=== PATIENT | female | born 1975 | race Caucasian/White ===

== ENCOUNTER 2021-07-24 07:48 | Inpatient (IN) | payer OTHER, SELFPAY ==
[2021-07-24] VITALS (7 sets, daily range): BP systolic 100–148; BP diastolic 57–102; PULSE 54–118; RESP 14–24; TEMP 36.2–38.1; O2SAT 97–99; BMI 22.8
--- NOTE | ~2021-07-24 | MR_ITS ---
EXAMINATION: MR FOREARM WITHOUT AND WITH CONTRAST, LEFT MR HAND WITHOUT AND WITH CONTRAST, LEFT CLINICAL INFORMATION: Evaluate for osteomyelitis, tenosynovitis, septic arthritis. COMPARISON: None TECHNIQUE: MRI of the left forearm to left hand was performed before and after the intravenous administration of 5.5 mL of Gadavist on a high-field scanner. Most of the hand is included up to proximal fingers. FINDINGS: There is diffuse severe subcutaneous edema throughout the left forearm, wrist, and hand. There are no definite localized fluid collections to suggest an abscess. There is streaky enhancement involving the subcutaneous edema. There is no definite evidence of myositis. The tendons are unremarkable. There is no evidence of tenosynovitis. There are no apparent joint effusions. There is no evidence of bone marrow edema or bony destructive changes. MR/MR forearm LT wo/w con IMPRESSION: 1. Diffuse severe subcutaneous edema throughout the left forearm, wrist, and hand, with streaky enhancement, suspicious for cellulitis. No definite abscess. 2. No evidence of myositis, tenosynovitis, septic arthritis, or osteomyelitis.
--- NOTE | ~2021-07-24 | US_ITS ---
EXAMINATION: US VENOUS WITH DOPPLER UPPER EXTREMITY, LEFT CLINICAL INFORMATION: Swelling. Pain. COMPARISON: None TECHNIQUE: Ultrasound of the upper extremity is performed using compression sonography and color and pulse Doppler flow with assessment of augmentation of flow. There is also imaging and Doppler assessment of the jugular and subclavian veins. Spectral analysis with color-flow imaging is performed. FINDINGS: Respiratory variation, normal compression, and augmented flow are noted throughout the upper extremity including the axillary, brachial, cubital, and radial and ulnar veins. There is normal flow in the internal jugular and subclavian veins. There is no visible deep or superficial thrombophlebitis. If the patient's symptoms progress, a followup ultrasound in 5 -7 days might be of value to exclude proximal propagation from a nonvisualized distal arm vein. Prominent left axillary lymph node measures 1.9 x 0.8 x 1.5 cm with an echogenic central fatty hilum and normal internal vascularity, benign morphologic features. US/US venous duplex UE LT IMPRESSION: No DVT demonstrated in the left upper extremity.
--- NOTE | ~2021-07-24 | XR_ITS ---
EXAMINATION: XR FOREARM, LEFT CLINICAL INFORMATION: Cellulitis. IV drug abuse. Rule out osteomyelitis. COMPARISON: None TECHNIQUE: AP and lateral views of the left forearm were obtained. FINDINGS: No fracture of the left radius or ulna. Mild diffuse subcutaneous edema is noted of the left forearm. No gross cortical irregularity of the radius or ulna to suggest osteomyelitis. No radiopaque foreign body. XR/XR forearm LT 2V IMPRESSION: No radiographic evidence to suggest osteomyelitis.
--- NOTE | ~2021-07-24 | MR_ITS ---
EXAMINATION: MR FOREARM WITHOUT AND WITH CONTRAST, LEFT MR HAND WITHOUT AND WITH CONTRAST, LEFT CLINICAL INFORMATION: Evaluate for osteomyelitis, tenosynovitis, septic arthritis. COMPARISON: None TECHNIQUE: MRI of the left forearm to left hand was performed before and after the intravenous administration of 5.5 mL of Gadavist on a high-field scanner. Most of the hand is included up to proximal fingers. FINDINGS: There is diffuse severe subcutaneous edema throughout the left forearm, wrist, and hand. There are no definite localized fluid collections to suggest an abscess. There is streaky enhancement involving the subcutaneous edema. There is no definite evidence of myositis. The tendons are unremarkable. There is no evidence of tenosynovitis. There are no apparent joint effusions. There is no evidence of bone marrow edema or bony destructive changes. MR/MR hand LT wo/w con IMPRESSION: 1. Diffuse severe subcutaneous edema throughout the left forearm, wrist, and hand, with streaky enhancement, suspicious for cellulitis. No definite abscess. 2. No evidence of myositis, tenosynovitis, septic arthritis, or osteomyelitis.
--- NOTE | 2021-07-24 08:09 | ED_ITS ---
HPI - General Adult General Chief complaint: Skin/Abscess/Foreign Body Stated complaint: rash all over itchy Time Seen by Provider: 07/24/21 07:55 Source: patient Mode of arrival: ambulatory Limitations: no limitations History of Present Illness HPI narrative: 46-year-old female came in for evaluation of itching and left arm pain, sees worms crawling on her skin. Patient is known to be IV drug abuser presented with 1 day history of diffuse rashes and itching, patient is homeless spend the last 2 nights in who tail and questioning bed bugs, patient also describing warmth are crawling on her scan and coming out of her vagina. Patient is IV drug abuser last use in her left forearm, had 2 days of left forearm redness and hotness with tenderness. Related Data Home Medications Medication Instructions Recorded Confirmed No Known Home Meds 07/24/21 07/24/21 Allergies Allergy/AdvReac Type Severity Reaction Status Date / Time sumatriptan [From IMITREX] Allergy Intermediate SWELLING Verified 06/29/21 12:10 Review of Systems Review of Systems: All other systems are reviewed and are negative Constitutional: Reports as per HPI and Reports no additional constitutional complaints Eyes: Reports as per HPI and Reports no additional eye complaints Reports system reviewed and no additional complaints, except as documented Cardiovascular: Reports as per HPI and Reports no additional cardiovascular complaints Respiratory: Reports as per HPI and Reports no additional respiratory complaints Gastrointestinal: Reports as per HPI and Reports no additional gastrointestinal complaints Genitourinary: Reports no additional female genitourinary complaints Musculoskeletal: Reports no additional musculoskeletal complaints Skin/Breast: Reports system reviewed and no additional complaints, except as docu Psychiatric: Reports no additional psychiatric complaints Endocrine: Reports no additional endocrine complaints Hematologic/Lymphatic: Reports no additional hematologic/lymphatic complaints Allergic/Immunologic: Reports no additional allergic/immunologic complaints Reports system reviewed and no additional complaints, except as documented and Reports Abnormal speech present [facility] Past Medical History Medical History Cocaine abuse Social History Social History Alcohol intake: unknown Patient Tobacco Use Status: Current everyday Tobacco user Smoked in Last 30 Days: Yes Use of substances other than those prescribed or required for medical reasons: Yes Substance Use Type: Crack/Cocaine Substance Use Frequency: Daily Last Used Substance: Hours (ago) Advance Directives: No Advance Directives Information Provided: No Patient : No Physical Exam Vital Signs: Vital Signs: Last Vital Signs Temp 100.5 F H 07/24/21 08:02 Pulse 86 07/24/21 09:59 Resp 16 07/24/21 09:59 BP 108/70 07/24/21 10:27 Pulse Ox 98 07/24/21 09:59 Body Mass Index 22.8 Vital signs have been reviewed as appeared to be correct. Blood pressure normal. Heart rate normal. Respiration rate normal. Temperature normal. Oxygen saturation normal. Appearance: Alert. Oriented X3. No acute distress. Appears very anxious. Head: Normal external exam. Normocephalic. Atraumatic. No Mayes signs noted. No raccoon eyes noted Eyes: PERRLA. EOMI. Conjunctiva and sclera normal. Eyelids normal. ENT: TM's Normal. Pharynx normal. Uvula midline. Moist mucous membranes. No trismus noted. No drooling noted. No muffled voice noted. Neck: Normal inspection. Neck supple. FROM. No adenopathy. Thyroid Normal. No meningeal signs. No neck mass noted. CVS: Normal heart rate and rhythm. Heart sound normal. No murmurs noted. Pulses normal throughout. Respiratory: No respiratory distress. Painless inspiration. Breath sounds normal. No wheezes/rales/rhonchi noted. Chest nontender. No accessory muscle usage noted or decreased air movement noted. Abdomen: Soft and nontender. Bowel sounds normal in all 4 quadrants. No distention noted. No organomegaly noted. No visible injury noted. Pelvic exam: Normal inspection of external genitalia, no mass, no discharge, no warms. Back: No CVA tenderness. Full range of motion noted. Skin: Diffuse left forearm swelling, tenderness, redness, hotness, no discrete fluctuation or abscess is appreciated, multiple IV tracking baird. Diffuse hives on the torso and all extremities. Extremities: No lower extremity edema. Neuro: Oriented X 3. Cranial nerve exam: II-XII are grossly intact No motor deficit. No sensory deficit. Reflexes normal. Patient Appearance: Appropriate Patient Orientation: Person, Place, Time and Situation Level of Consciousness: Awake, Appropriate and Alert Patient Behavior: Talkative, Cooperative. Mood Description: Anxious and declined depression. Affect Description: Flat. Patient Cognition Impaired: No Ability to Follow Directions: Good Speech Pattern: Spontaneous Speech Memory Description: Intact Hallucinations: Not present. Delusions: Not Present Thought Process: Logical. Thought Content: Unremarkable Depressive Symptoms: Increased anxiety. Judgement: Fair Course Course Course Narrative: Assessment and plan. 46-year-old female with history of IV drug abuser came in with diffuse generalized itching and pruritus, patient also on the exam found to have left forearm cellulitis secondary to IV drug injections, patient met criteria for SIRS, normal lactic acid, no severe sepsis or septic shock. patient received IV fluids/Zosyn/vancomycin. X-ray show no acute osteomyelitis. Patient will need inpatient hospitalization for IV antibiotic. Medical Decision Making Lab Data Lab results reviewed: Yes I reviewed the patient's lab results. Result diagrams: 07/24/21 08:27 07/24/21 08:27 Labs: Lab Results 07/24/21 07/24/21 07/24/21 Range/Units 08:17 08:27 08:27 WBC 20.5 H (4.8-10.8) X10*3/uL RBC 4.34 (4.20-5.50) X10*6/uL Hgb 14.0 (12.0-16.0) g/dl Hct 40.9 (37-47) % MCV 94.2 (80-98) fL MCH 32.3 (27.0-33.0) pg MCHC 34.2 (31.0-35.0) g/dl RDW 12.2 (11.0-16.0) % Plt Count 322 (160-400) X10*3/uL MPV 11.3 (9.4-12.3) fL Immature Gran % (Auto) 0.5 H (0.0-0.4) % Neut % (Auto) 92.3 H (45-73) % Lymph % (Auto) 3.2 L (20-40) % [place] % (Auto) 3.8 (2-11) % Eos % (Auto) 0.1 (0-4) % Baso % (Auto) 0.1 (0-2) % Lymph # (Auto) 0.7 L (1.2-4.9) X10*3/uL [place] # (Auto) 0.8 (0.1-1.2) X10*3/uL Eos # (Auto) 0.0 (0.0-0.4) X10*3/uL Baso # (Auto) 0.0 (0.0-0.2) X10*3/uL Abs Immat Gran (auto) 0.11 H (0.00-0.03) X10*3/uL Absolute Neuts (auto) 18.9 H (2.0-8.3) X10*3/uL Absolute Nucleated RBC 0.000 (0.0-0.012) X10*3/uL Nucleated RBC % (auto) 0.0 (0.0-0.2) /100WBC Smear Tech's Comments VERIFIED Sodium 134 L (135-145) mmol/L Potassium 4.3 (3.3-5.1) mmol/L Chloride 101 (96-108) mmol/L Carbon Dioxide 19 L (22-29) mmol/L Anion Gap 18 (12-20) BUN 14 (9-16) mg/dL Creatinine 1.04 (0.5-1.4) mg/dL Estim Creat Clear Calc 54.0 Estimated GFR 57 Random Glucose 108 (60-115) mg/dL Lactic Acid (0.5-2.0) mmol/L Calcium 9.2 (8.4-10.2) mg/dL Lipase 21 (8-78) U/L COVID-19 (RASHEED) Negative (Negative) COVID-19 Clin Com See Note 07/24/21 Range/Units 08:27 WBC (4.8-10.8) X10*3/uL RBC (4.20-5.50) X10*6/uL Hgb (12.0-16.0) g/dl Hct (37-47) % MCV (80-98) fL MCH (27.0-33.0) pg MCHC (31.0-35.0) g/dl RDW (11.0-16.0) % Plt Count (160-400) X10*3/uL MPV (9.4-12.3) fL Immature Gran % (Auto) (0.0-0.4) % Neut % (Auto) (45-73) % Lymph % (Auto) (20-40) % [place] % (Auto) (2-11) % Eos % (Auto) (0-4) % Baso % (Auto) (0-2) % Lymph # (Auto) (1.2-4.9) X10*3/uL [place] # (Auto) (0.1-1.2) X10*3/uL Eos # (Auto) (0.0-0.4) X10*3/uL Baso # (Auto) (0.0-0.2) X10*3/uL Abs Immat Gran (auto) (0.00-0.03) X10*3/uL Absolute Neuts (auto) (2.0-8.3) X10*3/uL Absolute Nucleated RBC (0.0-0.012) X10*3/uL Nucleated RBC % (auto) (0.0-0.2) /100WBC Smear Tech's Comments Sodium (135-145) mmol/L Potassium (3.3-5.1) mmol/L Chloride (96-108) mmol/L Carbon Dioxide (22-29) mmol/L Anion Gap (12-20) BUN (9-16) mg/dL Creatinine (0.5-1.4) mg/dL Estim Creat Clear Calc Estimated GFR Random Glucose (60-115) mg/dL Lactic Acid 1.4 (0.5-2.0) mmol/L Calcium (8.4-10.2) mg/dL Lipase (8-78) U/L COVID-19 (RASHEED) (Negative) COVID-19 Clin Com Imaging Data Left forearm x-ray: Radiologist's impression: No radiographic evidence to suggest osteomyelitis. ? Discharge Plan Discharge Clinical Impression: Urticaria Cellulitis Qualifiers: Site of cellulitis of extremity: upper extremity Laterality: left Patient Disposition: Admitted As Inpatient
[2021-07-24 08:37] LABS: Basophils Percent Auto 0.1 % (0-2); Eosinophils Percent Auto 0.1 % (0-4); Hematocrit 40.9 % (37-47); Imm Gran Abs Auto 0.11 X10*3/uL (0.00-0.03); Imm Gran Pct Auto 0.5 % (0.0-0.4); Lymphocytes Absolute Auto 0.7 X10*3/uL (1.2-4.9); Lymphocytes Percent Auto 3.2 % (20-40); MANUAL DIFF FLAG SCAN; Mean Corpuscular HGB Conc 34.2 g/dl (31.0-35.0); Mean Corpuscular Hemoglobin 32.3 pg (27.0-33.0); Mean Corpuscular Volume 94.2 fL (80-98); Mean Platelet Volume 11.3 fL (9.4-12.3); Monocytes Absolute Auto 0.8 X10*3/uL (0.1-1.2); Monocytes Percent Auto 3.8 % (2-11); Neutrophils Absolute Auto 18.9 X10*3/uL (2.0-8.3); Neutrophils Percent Auto 92.3 % (45-73); Platelet Count 322 X10*3/uL (160-400); Red Blood Count 4.34 X10*6/uL (4.20-5.50); Red Cell Distribution Width 12.2 % (11.0-16.0); SCAN SMEAR FLAG 1
[2021-07-24] MEDS: diphenhydrAMINE HCL 50 MG/ML VIAL 25 MG IVPUSH (08:38)
[2021-07-24 08:40] LABS: White Blood Count 20.5 X10*3/uL (4.8-10.8)
[2021-07-24] MEDS: methylPREDNISolone Sod Succ 125 MG/2 ML VIAL IVPUSH (08:40)
[2021-07-24] MEDS: Famotidine/PF 20 MG/2 ML VIAL IVPUSH (08:41)
[2021-07-24] MEDS: 0.9 % Sodium Chloride 1,000 ML 999 ML IVCONT (08:43)
[2021-07-24] MEDS: Piperacillin Sodium/Tazobactam 3.375 GM in 0.9 % Sodium Chloride 50 ML IV ×3 (08:44→21:06)
[2021-07-24 08:47] LABS: Lactic Acid 1.4 mmol/L (0.5-2.0)
[2021-07-24 08:50] LABS: COVID-19 Test Negative (Negative)
[2021-07-24 08:53] LABS: Anion Gap 18 (12-20); Blood Urea Nitrogen 14 mg/dL (9-16); Calcium 9.2 mg/dL (8.4-10.2); Carbon Dioxide 19 mmol/L (22-29); Chloride 101 mmol/L (96-108); Estimated Glomerular Filt Rate 57; Glucose Random 108 mg/dL (60-115); Lipase 21 U/L (8-78); Potassium 4.3 mmol/L (3.3-5.1); Sodium 134 mmol/L (135-145)
[2021-07-24 08:56] LABS: SLIDE REVIEW VERIFIED
--- NOTE | 2021-07-24 10:19 | PHA.MEDREC ---
Pharmacy Consult ? Medication Reconciliation Pharmacy has completed the medication reconciliation. There are no remarkable issues. Patient reports she takes no medications prescription or OTC. Gabriela Davis, PharmD
[2021-07-24] MEDS: vancomycin HCL 1,250 MG in 0.9 % Sodium Chloride 250 ML 166.67 MG IV (10:50)
[2021-07-24 11:52] LABS: Alanine Aminotransferase 11 U/L (0-31); Alkaline Phosphatase 69 U/L (39-117); Aspartate Amino Transferase 34 U/L (5-31); Bilirubin Direct 0.3 mg/dL (0.0-0.5); Bilirubin Total 0.9 mg/dL (0.0-1.0); C Reactive Protein 0.72 mg/dL (< or = 0.50); Total Protein 6.8 g/dL (6.5-8.0)
--- NOTE | 2021-07-24 13:40 | PM.IMHP ---
History of Present Illness Date of Service: 07/24/21 Chief Complaint: L arm pain/itching 46-year-old homeless female with history of HCV [treated?] and ongoing injection cocaine abuse presenting with itching and pain of her L hand and forearm for the past 2 days. Also came in complaining of bugs/worms crawling all over her skin. She has been living in a hotel after recently spending time in senior care. Denies fever, cough, dyspnea, or chest pain. Denies nausea, vomiting, abdominal pain, or diarrhea. States she had 2 doses of COVID vaccination. She was given IV famotidine, diphenydramine, and methylprednisolone in the ED with relief of her itching. She was found to have cellulitis of her left hand and was given vancomycin and piperacillin. She met SIRS criteria with leukocytosis, tachycardia, and tachypnea and had a low-grade fever of 100.5. She denies history of bloodstream infection or endocarditis. She smokes 1/2 ppd. She denies injection of opioids or other substances. came in for evaluation of itching and left arm pain, sees worms crawling on her skin. Review of Systems Review of Systems: Yes all other systems are reviewed and are negative [facility] Medical History (Updated 07/24/21 @ 13:42 by Adrian Cowart MD) Cocaine abuse Hepatitis C Pertinent family history: Diabetes mellitus Social History Alcohol intake: unknown Patient Tobacco Use Status: Current everyday Tobacco user Smoked in Last 30 Days: Yes Use of substances other than those prescribed or required for medical reasons: Yes Substance Use Type: Crack/Cocaine Substance Use Frequency: Daily Last Used Substance: Hours (ago) Advance Directives: No Advance Directives Information Provided: No Patient : No Meds Allergies Allergy/AdvReac Type Severity Reaction Status Date / Time sumatriptan [From IMITREX] Allergy Intermediate SWELLING Verified 06/29/21 12:10 Active Medications: Current Medications Acetaminophen (Acetaminophen 325 Mg Tablet) 650 mg PO Q6H PRN PRN Reason: Pain, Mild (Pain Scale 1-3) Enoxaparin Sodium (Enoxaparin Sodium 40 Mg/0.4 Ml Syringe) 40 mg SUBCUT Q24H SUSAN Piperacillin Sod/Tazobactam (Sod 3.375 gm/ Sodium Chloride) 50 mls @ 100 mls/hr IV Q6H [facility] Lorazepam (Lorazepam 2 Mg/Ml Vial) 0.5 mg IVPUSH Q4H PRN PRN Reason: anxiety/agitation Ondansetron HCl (Ondansetron Hcl 4 Mg/2 Ml Vial) 4 mg IVPUSH Q8H PRN PRN Reason: Nausea and Vomiting Pharmacy Consult (Consult Rx Perform Med Rec) 1 each MISCELLANE ONCE PRN PRN Reason: Consult order Pharmacy Consult (Consult Rx Vancomycin Dosing) 1 each MISCELLANE DAILY PRN PRN Reason: Consult order Pharmacy Consult (Consult Rx Vancomycin Dosing) 1 each MISCELLANE NOW STA Stop: 07/24/21 13:40 Sodium Chloride (0.9 % Sodium Chloride Flush 3 Ml Syringe) 3 ml IVFLUSH QSHIFT [facility] Home Medications Medication Instructions Recorded Confirmed Last Taken Type No Known Home Meds 07/24/21 07/24/21 Unknown History Physical Exam Vital Signs and Narrative: Vital Signs: Last Vital Signs Temp 98.3 F 07/24/21 12:08 Pulse 76 07/24/21 12:08 Resp 15 07/24/21 12:08 BP 102/62 07/24/21 12:08 Pulse Ox 97 07/24/21 12:08 Body Mass Index 22.8 Gen: in no acute distress HEENT: sclera anicteric, moist mucus membranes Neck: supple Lungs: clear to auscultation bilaterally Heart: regular rate and rhythm, no murmurs Abd: soft, non-tender, non-distended Ext: no edema Skin: extensive swelling and erythema of left hand without any fluctuance and no discharge, multiple excoriations Neuro: alert and oriented x3, no focal findings Psych: appropriate affect Results Labs CBC and Chem 7: 07/24/21 08:27 07/24/21 08:27 Labs: Laboratory Results - last 24 hr 07/24/21 07/24/21 07/24/21 08:17 08:27 08:27 MCV 94.2 MCH 32.3 MCHC 34.2 RDW 12.2 Plt Count 322 MPV 11.3 Immature Gran % (Auto) 0.5 H Neut % (Auto) 92.3 H Lymph % (Auto) 3.2 L [place] % (Auto) 3.8 Eos % (Auto) 0.1 Baso % (Auto) 0.1 Lymph # (Auto) 0.7 L [place] # (Auto) 0.8 Eos # (Auto) 0.0 Baso # (Auto) 0.0 Abs Immat Gran (auto) 0.11 H Absolute Neuts (auto) 18.9 H Absolute Nucleated RBC 0.000 Nucleated RBC % (auto) 0.0 Smear Tech's Comments VERIFIED Anion Gap 18 Estim Creat Clear Calc 54.0 Estimated GFR 57 Random Glucose 108 Lactic Acid Calcium 9.2 Total Bilirubin 0.9 Direct Bilirubin 0.3 AST 34 H ALT 11 Alkaline Phosphatase 69 C-Reactive Protein 0.72 H Total Protein 6.8 Albumin 4.0 Lipase 21 COVID-19 (RASHEED) Negative COVID-19 Clin Com See Note 07/24/21 08:27 MCV MCH MCHC RDW Plt Count MPV Immature Gran % (Auto) Neut % (Auto) Lymph % (Auto) [place] % (Auto) Eos % (Auto) Baso % (Auto) Lymph # (Auto) [place] # (Auto) Eos # (Auto) Baso # (Auto) Abs Immat Gran (auto) Absolute Neuts (auto) Absolute Nucleated RBC Nucleated RBC % (auto) Smear Tech's Comments Anion Gap Estim Creat Clear Calc Estimated GFR Random Glucose Lactic Acid 1.4 Calcium Total Bilirubin Direct Bilirubin AST ALT Alkaline Phosphatase C-Reactive Protein Total Protein Albumin Lipase COVID-19 (RASHEED) COVID-19 Clin Com ITS Impressions Forearm X-Ray 07/24/21 08:36 IMPRESSION: No radiographic evidence to suggest osteomyelitis. Imaging Radiologist's Impressions: Impressions Forearm X-Ray 07/24/21 08:36 IMPRESSION: No radiographic evidence to suggest osteomyelitis. 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
--- NOTE | 2021-07-24 13:56 | PHA.PROG ---
Admission Date/Time: July 24, 2021 13:35 Indication: Weight in k.699 kg Adjusted body weight in K.74 KG [place] body weight in K.1 KG Obesity Dosing Indication % IBW: N/A Serum Creatinine - Last 168 Hours 07/24/21 08:27 Creatinine 1.04 Estimated CrCl and GFR - Last 168 Hours 07/24/21 08:27 Estim Creat Clear Calc 54.0 Estimated GFR 57 Current Vancomycin Dosing Regimen: 1250 mg Q24H Date and Time for next Vancomycin Level to be drawn: @ 0900 Pharmacist Comments on Vancomycin Plan: Vanco 1250 mg given in the ED @ 1050 on 07/24. Continue with vanco 1250 mg Q24 on 07/25 @ 1000. Expected AUC 468 with a trough of 12.7 Trough to be drawn before 4th dose Pharmacy to monitor renal function daily Gabriela Davis, Miryam Vancomycin dosing will take advantage of [employer] as a clinical decision support tool that uses Bayesian modeling to calculate individual patient's pharmacokinetic parameters and forecast the patient's drug concentration time course with the target goal AUC 24 range of 400 - 600 mg/L/hr.
--- NOTE | 2021-07-24 14:57 | MHC.RECOVSUP ---
? Reason for consult:Recovery Support o?? Current location ED2? o?? Identified substance use concern Cocaine ?? Support ? Intervention: o?? Community resources provided o?? Harm reduction discussion ? Plan: o?? Follow up tomorrow? o?? Patient to follow up with [facility] after discharge ? Additional information: Spoke with Pt. She states that she has been on a run for a couple weeks.Ask If she would be interested in treatment she stated that she has to take care of her mother.Gave info about HF. ?
[2021-07-24 21:01] LABS: Appearance Urine CLEAR; Color Urine YELLOW; Glucose Urine UA NEG (NEG); Leukocyte Esterase Urine NEG (NEG); Nitrite Urine NEG (NEG); PH 5.5 (5.0-8.0); Specific Gravity - Urine >= 1.030 (1.005-1.025); UACC Culture Trigger NO; Urine Blood TRACE (NEG); Urine Ketones 40 MG/DL (NEG); Urine Protein NEG (NEG-TRACE)
[2021-07-24 21:04] LABS: UPreg QC Valid YES; Urine Pregnancy NEGATIVE (NEGATIVE)
[2021-07-24 21:09] LABS: Squamous Epithelial Cell Urine 1+ /LPF; WBC Urine 0-2 /HPF (0-4)
[2021-07-24 21:10] LABS: Bacteria Urine TRACE /LPF; Mucus Urine TRACE /LPF
[2021-07-24] MEDS: Nicotine 14 MG PATCH.TD24 TRANSDERMA (21:17)
[2021-07-25 00:45] LABS: Amphetamine Screen Urine Not Detected (Not Detect); Barbiturates, Urine Not Detected (Not Detect); Benzodiazepines Screen Urine Not Detected (Not Detect); Cannabinoid Screen Urine POSITIVE (Not Detect); Cocaine Screen Urine POSITIVE (Not Detect); Fentanyl, urine Not Detected (Not Detect); Opiate Screen Urine Not Detected (Not Detect); Phencyclidine Screen Urine Not Detected (Not Detect)
[2021-07-25] MEDS: 0.9 % Sodium Chloride Flush 3 ML SYRINGE IVFLUSH ×4 (01:12→21:47)
[2021-07-25] MEDS: Piperacillin Sodium/Tazobactam 3.375 GM in 0.9 % Sodium Chloride 50 ML IV ×4 (01:16→20:51)
[2021-07-25 04:00] VITALS: BP 109/64; PULSE 58; RESP 16; TEMP 36.6; O2SAT 98
[2021-07-25 06:16] LABS: Hematocrit 40.9 % (37-47); Hemoglobin 13.6 g/dl (12.0-16.0); Mean Corpuscular HGB Conc 33.3 g/dl (31.0-35.0); Mean Corpuscular Hemoglobin 31.8 pg (27.0-33.0); Mean Corpuscular Volume 95.6 fL (80-98); Platelet Count 339 X10*3/uL (160-400); Red Blood Count 4.28 X10*6/uL (4.20-5.50); Red Cell Distribution Width 12.3 % (11.0-16.0)
[2021-07-25 06:34] LABS: Anion Gap 13 (12-20); Blood Urea Nitrogen 19 mg/dL (9-16); Calcium 8.9 mg/dL (8.4-10.2); Carbon Dioxide 24 mmol/L (22-29); Chloride 107 mmol/L (96-108); Creatinine Clr Calc Pharmacy 69.4; Estimated Glomerular Filt Rate > 60; Glucose Random 134 mg/dL (60-115); Potassium 4.4 mmol/L (3.3-5.1); Sodium 140 mmol/L (135-145)
--- NOTE | 2021-07-25 07:23 | HE.PHANOTE ---
Addendum entered by Cornelia Villaseñor [facility] 07/25/21 07:34: Predicted AUC with 750 mg q12h dosing = 460, predicted trough = 14.2 Original Note: Vancomycin Dosing Addendum Pts Scr decreasing, adjusted dose because 1250 mg q24h predicting subtherapeutic vancomycin Levels. Gave 1 x dose 1250 and changed to 750 mg q12h. Trough before 4th vancomycin dose on 07/26/21 @0900
[2021-07-25 07:29] VITALS: BP 122/67; PULSE 66; RESP 18; TEMP 36.4; O2SAT 99
[2021-07-25] MEDS: Acetaminophen 325 MG TABLET 650 MG PO ×2 (08:50→18:37)
[2021-07-25] MEDS: Nicotine 14 MG PATCH.TD24 TRANSDERMA (09:09)
[2021-07-25] MEDS: vancomycin HCL 1,250 MG in 0.9 % Sodium Chloride 250 ML 166.67 MG IV (09:54)
--- NOTE | 2021-07-25 10:07 | P.PNIM_ITS ---
Subjective Subjective Date of Service: 07/25/21 Interval History: L hand still swollen/red/painful, unable to make a fist No fever Formication resolved Review of Systems Review of Systems: Yes all other systems are reviewed and are negative Physical Exam Vital Signs: Vital Signs: Last Vital Signs Temp 97.6 F 07/25/21 07:29 Pulse 66 07/25/21 07:29 Resp 18 07/25/21 07:29 BP 122/67 07/25/21 07:29 Pulse Ox 99 07/25/21 07:29 Body Mass Index 22.8 Gen: in no acute distress HEENT: sclera anicteric, moist mucus membranes Neck: supple Lungs: clear to auscultation bilaterally Heart: regular rate and rhythm, no murmurs Abd: soft, non-tender, non-distended Ext: no edema Skin: extensive swelling and erythema of left hand and forearm without any fluctuance and no discharge, multiple excoriations Neuro: alert and oriented x3, no focal findings Psych: appropriate affect Objective Data Active Medications Acetaminophen (Acetaminophen 325 Mg Tablet) 650 mg PO Q6H PRN PRN Reason: Pain, Mild (Pain Scale 1-3) Last Admin: 07/25/21 08:50 Dose: 650 mg Documented by: DALE Enoxaparin Sodium (Enoxaparin Sodium 40 Mg/0.4 Ml Syringe) 40 mg SUBCUT Q24H [facility] Last Admin: 07/24/21 14:07 Dose: Not Given Documented by: FOUZIA Non-Admin Reason: Patient Refused Piperacillin Sod/Tazobactam (Sod 3.375 gm/ Sodium Chloride) 50 mls @ 100 mls/hr IV Q6H [facility] Last Infusion: 07/25/21 09:55 Dose: 0 mls/hr Documented by: DALE Vancomycin HCl 1,250 mg/ (Sodium Chloride) 250 mls @ 166.667 mls/hr IV Q24H [facility] Stop: 07/25/21 11:29 Last Admin: 07/25/21 09:54 Dose: 166.67 mls/hr Documented by: DALE Vancomycin HCl 750 mg/ Sodium (Chloride) 265 mls @ 265 mls/hr IV Q12H [facility] Lorazepam (Lorazepam 2 Mg/Ml Vial) 0.5 mg IVPUSH Q4H PRN PRN Reason: anxiety/agitation Nicotine (Nicotine 14 Mg Patch.Td24) 14 mg TRANSDERMA DAILY [facility] Last Admin: 07/25/21 09:09 Dose: 14 mg Documented by: DALE Ondansetron HCl (Ondansetron Hcl 4 Mg/2 Ml Vial) 4 mg IVPUSH Q8H PRN PRN Reason: Nausea and Vomiting Pharmacy Consult (Consult Rx Perform Med Rec) 1 each MISCELLANE ONCE PRN PRN Reason: Consult order Pharmacy Consult (Consult Rx Vancomycin Dosing) 1 each MISCELLANE DAILY PRN PRN Reason: Consult order Sodium Chloride (0.9 % Sodium Chloride Flush 3 Ml Syringe) 3 ml IVFLUSH QSHIFT [facility] Last Admin: 07/25/21 08:53 Dose: 3 ml Documented by: DALE Labs CBC & Chem 7: 07/25/21 05:32 07/25/21 05:32 Labs: Laboratory Results - last 24 hr 07/24/21 07/24/21 07/24/21 08:27 20:53 20:53 MCV MCH MCHC RDW Plt Count MPV Absolute Nucleated RBC Nucleated RBC % (auto) Anion Gap Estim Creat Clear Calc Estimated GFR Random Glucose Calcium Total Bilirubin 0.9 Direct Bilirubin 0.3 AST 34 H ALT 11 Alkaline Phosphatase 69 C-Reactive Protein 0.72 H Total Protein 6.8 Albumin 4.0 Urine Color YELLOW Urine Appearance CLEAR Urine pH 5.5 Ur Specific [place] >= 1.030 H Urine Protein NEG Urine Glucose (UA) NEG Urine Ketones 40 Urine Blood TRACE Urine Nitrite NEG Ur Leukocyte Esterase NEG Urine RBC 1-4 Urine WBC 0-2 Ur Squamous Epith Cells 1+ Urine Bacteria TRACE Urine Mucus TRACE Urine Test NEGATIVE Urine Opiates Screen Urine Fentanyl Screen Ur Barbiturates Screen Ur Phencyclidine Scrn Ur Amphetamines Screen U Benzodiazepines Scrn Urine Cocaine Screen U Marijuana (THC) Screen 07/24/21 07/25/21 07/25/21 20:53 05:32 05:32 MCV 95.6 MCH 31.8 MCHC 33.3 RDW 12.3 Plt Count 339 MPV 12.0 Absolute Nucleated RBC 0.000 Nucleated RBC % (auto) 0.0 Anion Gap 13 Estim Creat Clear Calc 69.4 Estimated GFR > 60 Random Glucose 134 H Calcium 8.9 Total Bilirubin Direct Bilirubin AST ALT Alkaline Phosphatase C-Reactive Protein Total Protein Albumin Urine Color Urine Appearance Urine pH Ur Specific [place] Urine Protein Urine Glucose (UA) Urine Ketones Urine Blood Urine Nitrite Ur Leukocyte Esterase Urine RBC Urine WBC Ur Squamous Epith Cells Urine Bacteria Urine Mucus Urine Test Urine Opiates Screen Not Detected Urine Fentanyl Screen Not Detected Ur Barbiturates Screen Not Detected Ur Phencyclidine Scrn Not Detected Ur Amphetamines Screen Not Detected U Benzodiazepines Scrn Not Detected Urine Cocaine Screen POSITIVE H U Marijuana (THC) Screen POSITIVE H Assessment and Plan (1) Cocaine abuse: Status: Acute (2) Formication: Status: Acute (3) Sepsis: Status: Acute (4) Cellulitis: Status: Acute Assessment and Plan: hospital d#2 46-year-old homeless female with history of HCV [treated?] and ongoing injection cocaine abuse presenting septic with cellulitis of the left hand and forearm, cocaine-induced formication # sepsis # hand cellulitis - continue vancomycin + piperacillin IV d#2for broad-spectrum coverage, follow BCx to r/o bacteremia, obtain MRI of hand and forearm to rule out deeper space infection such as osteomyelitis, tenosynovitis, or septic arthritis # 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
--- NOTE | 2021-07-25 10:35 | MHC.RECOVSUP ---
Recovery Support note: Patient is a 46 year old Chinese speaking female who presented to [facility] due to the sensation that insects were crawling on her. Patient was medically admitted due to an infection. Patient met with a Customer Relations Representative on 07/24 to discuss her substance use and recovery supports. This hand sign writer followed up with patient to discuss her recovery further and to address any questions she may have regarding resources discussed with the Customer Relations Representative. Patient reports 5 years of sobriety prior to the relapse that lead to this period of use. Patient reports she has too many obligations and responsibilities and that she would not be able to utilize inpatient recovery programs after discharge. Patient reports that she plans to go to [facility] and attend meetings. Discussed meetings and IOP with patient. Patient is future oriented and expressed confidence that she will be able to begin a new period of sobriety. Encouraged patient to utilize supports as needed and to reflect on what worked well during her 5 years of sobriety. Patient acknowledged and reports no questions at this time. Discussed case with Gloria Logan NP.
--- NOTE | 2021-07-25 10:36 | MHC.CM.PN ---
PATIENT ASLEEP AND NOT RESPONDING TO VERBAL ATTEMPTS AT COMMUNICATION. PER REVIEW OF MEDICAL RECORD, PATIENT HAS BEEN TO SEE PROVIDERS AT [facility] HERE ON CAMPUS. NO DME OR VNA SERVICES. CONTACT CARD FOR CASE MANAGEMENT LEFT ON BEDSIDE TABLE AND NAME WRITTEN ON WHITE BOARD. CASE MANAGEMENT AVAILABLE OT ASSIST WITH DISCHARGE NEEDS.
[2021-07-25 11:52] VITALS: BP 103/59; PULSE 68; RESP 18; TEMP 36.8; O2SAT 98
[2021-07-25] MEDS: Enoxaparin Sodium 40 MG/0.4 ML SYRINGE SUBCUT (15:39)
[2021-07-25 15:40] VITALS: BP 106/68; PULSE 72; RESP 16; TEMP 36.4; O2SAT 99
[2021-07-25] MEDS: ondansetron HCL 4 MG/2 ML VIAL IVPUSH (18:39)
[2021-07-25 20:00] VITALS: BP 135/66; PULSE 92; RESP 16; TEMP 36.9; O2SAT 97
[2021-07-25] MEDS: vancomycin HCL 750 MG in 0.9 % Sodium Chloride 250 ML 265 MG IV (21:56)
[2021-07-25 23:26] VITALS: BP 103/62; PULSE 66; RESP 16; TEMP 36.6; O2SAT 99
[2021-07-26] MEDS: Piperacillin Sodium/Tazobactam 3.375 GM in 0.9 % Sodium Chloride 50 ML IV ×4 (03:11→20:16)
[2021-07-26 04:00] VITALS: BP 108/68; PULSE 57; RESP 14; TEMP 36.3; O2SAT 97
[2021-07-26 04:20] LABS: HIV AB/AG Nonreactive (Nonreactive); HIV Num 1 0.06 S/CO (0.00-0.99)
[2021-07-26 04:22] LABS: HBc Num1 0.13 S/CO (0.00-0.79); Hepatitis B Core Antibody Nonreactive (Nonreactive)
[2021-07-26 04:33] LABS: HBS Num1 2.22 mIU/mL (0-7.99); Hepatitis B Surface Antigen Negative (Negative); ~Hepatitis B Surface Antibody NONREACTIVE (Nonreactive)
[2021-07-26] MEDS: Acetaminophen 325 MG TABLET 650 MG PO ×2 (06:31→14:08)
[2021-07-26 07:22] LABS: Creatinine Clr Calc Pharmacy 68.5; Estimated Glomerular Filt Rate > 60
[2021-07-26 07:50] VITALS: BP 101/51; PULSE 66; RESP 18; TEMP 36.8; O2SAT 99
[2021-07-26] MEDS: Nicotine 14 MG PATCH.TD24 TRANSDERMA ×2 (07:55→14:16)
[2021-07-26] MEDS: 0.9 % Sodium Chloride Flush 3 ML SYRINGE IVFLUSH ×3 (07:56→23:41)
[2021-07-26 08:00] VITALS: BP 102/57; PULSE 64; RESP 18; TEMP 36.7; O2SAT 98
[2021-07-26 09:44] LABS: Vancomycin Trough 8.6 mcg/mL (10.0-20.0)
--- NOTE | 2021-07-26 10:16 | HE.PHANOTE ---
Addendum - Vancomycin Consult Current regimen is subterapeutic with trough at 8.6. Increase dos to 1000 mg Q12H. New epxect AUC of 496 with a trough of 13.8. Miley PetersonD
[2021-07-26] MEDS: vancomycin HCL 1,000 MG in 0.9 % Sodium Chloride 250 ML 270 MG IV ×2 (10:50→21:01)
--- NOTE | 2021-07-26 11:55 | HO.PM.IMPN ---
Subjective Subjective Date of Service: 07/26/21 Interval History: Worsening left hand/forearm swelling/redness; WBC increased Formication resolved No fever Review of Systems Review of Systems: Yes all other systems are reviewed and are negative Physical Exam Vital Signs: Vital Signs: Last Vital Signs Temp 98.1 F 07/26/21 08:00 Pulse 64 07/26/21 08:00 Resp 18 07/26/21 08:00 BP 102/57 L 07/26/21 08:00 Pulse Ox 98 07/26/21 08:00 Body Mass Index 22.8 Gen: in no acute distress HEENT: sclera anicteric, moist mucus membranes Neck: supple Lungs: clear to auscultation bilaterally Heart: regular rate and rhythm, no murmurs Abd: soft, non-tender, non-distended Ext: no edema Skin: extensive swelling and erythema of left hand and forearm without any fluctuance and no discharge; unable to close left fist; multiple excoriations on forearms Neuro: alert and oriented x3, no focal findings Psych: appropriate affect Objective Data Active Medications Acetaminophen (Acetaminophen 325 Mg Tablet) 650 mg PO Q6H PRN PRN Reason: Pain, Mild (Pain Scale 1-3) Last Admin: 07/26/21 06:31 Dose: 650 mg Documented by: AIDAN Enoxaparin Sodium (Enoxaparin Sodium 40 Mg/0.4 Ml Syringe) 40 mg SUBCUT Q24H [facility] Last Admin: 07/25/21 15:39 Dose: 40 mg Documented by: DALE Piperacillin Sod/Tazobactam (Sod 3.375 gm/ Sodium Chloride) 50 mls @ 100 mls/hr IV Q6H [facility] Last Infusion: 07/26/21 08:38 Dose: 100 mls/hr Documented by: MEY Vancomycin HCl 1,000 mg/ (Sodium Chloride) 270 mls @ 270 mls/hr IV Q12H [facility] Last Admin: 07/26/21 10:50 Dose: 270 mls/hr Documented by: MEY Lorazepam (Lorazepam 2 Mg/Ml Vial) 0.5 mg IVPUSH Q4H PRN PRN Reason: anxiety/agitation Nicotine (Nicotine 14 Mg Patch.Td24) 14 mg TRANSDERMA DAILY [facility] Last Admin: 07/26/21 07:55 Dose: 14 mg Documented by: MEY Ondansetron HCl (Ondansetron Hcl 4 Mg/2 Ml Vial) 4 mg IVPUSH Q8H PRN PRN Reason: Nausea and Vomiting Last Admin: 07/25/21 18:39 Dose: 4 mg Documented by: SELVIN Pharmacy Consult (Consult Rx Perform Med Rec) 1 each MISCELLANE ONCE PRN PRN Reason: Consult order Pharmacy Consult (Consult Rx Vancomycin Dosing) 1 each MISCELLANE DAILY PRN PRN Reason: Consult order Sodium Chloride (0.9 % Sodium Chloride Flush 3 Ml Syringe) [facility] Last Admin: 07/26/21 07:56 Dose: 3 ml Documented by: MEY Labs CBC & Chem 7: 07/25/21 05:32 07/26/21 05:52 Labs: Laboratory Results - last 24 hr 07/25/21 07/25/21 07/26/21 05:32 05:32 05:52 Estim Creat Clear Calc 68.5 Estimated GFR > 60 Vancomycin Trough Hep Bs Antigen Negative Hep Bs Antibody NONREACTIVE Hep B Core Total Ab Nonreactive HIV 1&2 Ab/P24 Ag 4thGn Nonreactive 07/26/21 09:02 Estim Creat Clear Calc Estimated GFR Vancomycin Trough 8.6 L Hep Bs Antigen Hep Bs Antibody Hep B Core Total Ab HIV 1&2 Ab/P24 Ag 4thGn Microbiology Microbiology Results: Microbiology 07/24/21 08:27 Blood Culture - Preliminary Blood - Venous No growth after 48 hours. 07/24/21 08:27 Blood Culture - Preliminary Blood - Venous No growth after 48 hours. Assessment and Plan (1) Cocaine abuse: Status: Acute (2) Formication: Status: Acute (3) Sepsis: Status: Acute (4) Cellulitis: Status: Acute Assessment and Plan: hospital d#3 46-year-old homeless female with history of HCV [treated?] and ongoing injection cocaine abuse presenting septic with cellulitis of the left hand and forearm, cocaine-induced formication # sepsis # hand cellulitis - continue vancomycin + piperacillin IV d#3 for broad-spectrum coverage - not bacteremic - MRI of hand and forearm today to rule out deeper space infection such as osteomyelitis, tenosynovitis, or septic arthritis - will consult Ortho/Hand Surgery # 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
[2021-07-26 12:00] VITALS: BP 110/62; PULSE 64; RESP 18; TEMP 36.6; O2SAT 99
[2021-07-26] MEDS: Enoxaparin Sodium 40 MG/0.4 ML SYRINGE SUBCUT (14:10)
[2021-07-26 15:53] VITALS: BP 112/64; PULSE 63; RESP 16; TEMP 36.7; O2SAT 99
[2021-07-26 19:32] VITALS: BP 115/65; PULSE 69; RESP 16; TEMP 36.7; O2SAT 99
[2021-07-26] MEDS: HYDROcodone Bit/Acetam 5/325 TABLET 1 TAB PO (20:16)
[2021-07-27] VITALS (7 sets, daily range): BP systolic 110–155; BP diastolic 62–92; PULSE 58–75; RESP 17–18; TEMP 36.3–37.2; O2SAT 98–100
[2021-07-27] MEDS: Piperacillin Sodium/Tazobactam 3.375 GM in 0.9 % Sodium Chloride 50 ML IV ×2 (02:19→10:14)
[2021-07-27] MEDS: diphenhydrAMINE HCL 25 MG TABLET PO (02:51)
[2021-07-27 05:55] LABS: Hematocrit 35.5 % (37-47); Hemoglobin 11.9 g/dl (12.0-16.0); Mean Corpuscular HGB Conc 33.5 g/dl (31.0-35.0); Mean Corpuscular Hemoglobin 32.6 pg (27.0-33.0); Mean Corpuscular Volume 97.3 fL (80-98); Mean Platelet Volume 11.4 fL (9.4-12.3); Platelet Count 285 X10*3/uL (160-400); Red Blood Count 3.65 X10*6/uL (4.20-5.50); Red Cell Distribution Width 12.6 % (11.0-16.0); White Blood Count 7.4 X10*3/uL (4.8-10.8)
[2021-07-27 06:00] LABS: Anion Gap 12 (12-20); Blood Urea Nitrogen 13 mg/dL (9-16); C Reactive Protein 0.85 mg/dL (< or = 0.50); Carbon Dioxide 23 mmol/L (22-29); Chloride 110 mmol/L (96-108); Creatinine Clr Calc Pharmacy 65.3; Estimated Glomerular Filt Rate > 60; Glucose Random 93 mg/dL (60-115); Potassium 4.2 mmol/L (3.3-5.1); Sodium 141 mmol/L (135-145)
--- NOTE | 2021-07-27 09:08 | HO.PM.IMPN ---
Subjective Subjective Date of Service: 07/27/21 Interval History: L hand still red + swollen WBC normalized No fever Review of Systems Review of Systems: Yes all other systems are reviewed and are negative Physical Exam Vital Signs: Vital Signs: Last Vital Signs Temp 97.5 F 07/27/21 07:34 Pulse 61 07/27/21 07:34 Resp 18 07/27/21 07:34 BP 110/69 07/27/21 07:34 Pulse Ox 98 07/27/21 07:34 Body Mass Index 22.8 Gen: in no acute distress HEENT: sclera anicteric, moist mucus membranes Neck: supple Lungs: clear to auscultation bilaterally Heart: regular rate and rhythm, no murmurs Abd: soft, non-tender, non-distended Ext: no edema Skin: extensive swelling and erythema of left hand without any fluctuance and no discharge; unable to close left fist; multiple excoriations on forearms Neuro: alert and oriented x3, no focal findings Psych: appropriate affect Objective Data Active Medications Acetaminophen (Acetaminophen 325 Mg Tablet) 650 mg PO Q6H PRN PRN Reason: Pain, Mild (Pain Scale 1-3) Last Admin: 07/26/21 14:08 Dose: 650 mg Documented by: MEY Hydrocodone Bitart/Acetaminophen (Hydrocodone Bit/Acetam 5/325 Tablet) 1 tab PO Q4H PRN PRN Reason: moderate pain Last Admin: 07/26/21 20:16 Dose: 1 tab Documented by: RANI Diphenhydramine HCl (Diphenhydramine Hcl 25 Mg Tablet) 25 mg PO Q4H PRN PRN Reason: Itching Last Admin: 07/27/21 02:51 Dose: 25 mg Documented by: GUERITA Enoxaparin Sodium (Enoxaparin Sodium 40 Mg/0.4 Ml Syringe) 40 mg SUBCUT Q24H [facility] Last Admin: 07/26/21 14:10 Dose: 40 mg Documented by: MEY Piperacillin Sod/Tazobactam (Sod 3.375 gm/ Sodium Chloride) 50 mls @ 100 mls/hr IV Q6H [facility] Last Infusion: 07/27/21 02:51 Dose: 0 mls/hr Documented by: GUERITA Vancomycin HCl 1,000 mg/ (Sodium Chloride) 270 mls @ 270 mls/hr IV Q12H [facility] Last Infusion: 07/26/21 22:17 Dose: 0 mls/hr Documented by: RANI Lorazepam (Lorazepam 2 Mg/Ml Vial) 0.5 mg IVPUSH Q4H PRN PRN Reason: anxiety/agitation Morphine Sulfate (Morphine Sulfate 2 Mg/Ml Cartridge) 2 mg IVPUSH Q2H PRN; Protocol PRN Reason: severe pain Nicotine (Nicotine 14 Mg Patch.Td24) 14 mg TRANSDERMA DAILY [facility] Last Admin: 07/26/21 14:16 Dose: 14 mg Documented by: MEY Ondansetron HCl (Ondansetron Hcl 4 Mg/2 Ml Vial) 4 mg IVPUSH Q8H PRN PRN Reason: Nausea and Vomiting Last Admin: 07/25/21 18:39 Dose: 4 mg Documented by: SELVIN Pharmacy Consult (Consult Rx Perform Med Rec) 1 each MISCELLANE ONCE PRN PRN Reason: Consult order Pharmacy Consult (Consult Rx Vancomycin Dosing) 1 each MISCELLANE DAILY PRN PRN Reason: Consult order Sodium Chloride (0.9 % Sodium Chloride Flush 3 Ml Syringe) 3 ml IVFLUSH QSHIFT [facility] Last Admin: 07/26/21 23:41 Dose: 3 ml Documented by: GUERITA Labs CBC & Chem 7: 07/27/21 05:33 07/27/21 05:33 Labs: Laboratory Results - last 24 hr 07/26/21 07/27/21 07/27/21 09:02 05:33 05:33 MCV 97.3 MCH 32.6 MCHC 33.5 RDW 12.6 Plt Count 285 MPV 11.4 Absolute Nucleated RBC 0.000 Nucleated RBC % (auto) 0.0 Anion Gap 12 Estim Creat Clear Calc 65.3 Estimated GFR > 60 Random Glucose 93 Calcium 9.0 C-Reactive Protein 0.85 H Vancomycin Trough 8.6 L Microbiology Microbiology Results: Microbiology 07/24/21 08:27 Blood Culture - Preliminary Blood - Venous No growth after 48 hours. 07/24/21 08:27 Blood Culture - Preliminary Blood - Venous No growth after 48 hours. Assessment and Plan (1) Cocaine abuse: Status: Acute (2) Formication: Status: Acute (3) Sepsis: Status: Acute (4) Cellulitis: Status: Acute Assessment and Plan: hospital d#4 46-year-old homeless female with history of HCV [previously treated] and ongoing injection cocaine abuse presenting septic with cellulitis of the left hand and forearm, cocaine-induced formication # sepsis # hand cellulitis - continue vancomycin + piperacillin IV d#4 for broad-spectrum coverage - not bacteremic - MRI ruled out deep space infection such as osteomyelitis, tenosynovitis, or septic arthritis - Ortho and ID consults pending # 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
[2021-07-27] MEDS: Nicotine 14 MG PATCH.TD24 TRANSDERMA (10:15)
[2021-07-27] MEDS: 0.9 % Sodium Chloride Flush 3 ML SYRINGE IVFLUSH ×2 (10:17→23:54)
[2021-07-27] MEDS: Acetaminophen 325 MG TABLET 650 MG PO (10:22)
--- NOTE | 2021-07-27 12:18 | PC.NURSE ---
Skin assessment completed. Patient has Cellulitis to left hand. Red and swollen with no open areas. Patient is on antibiotics. No other skin issues at this time.
[2021-07-27] MEDS: vancomycin HCL 1,000 MG in 0.9 % Sodium Chloride 250 ML 270 MG IV ×2 (12:36→22:37)
--- NOTE | 2021-07-27 12:53 | P.CONOP_ITS ---
History of Present Illness HPI Consult date: 07/27/21 Chief complaint: Sepsis L hand cellulitis Narrative: Patient presented to the ED with worsening left hand pain and swelling. She is an active IVDU, she injected into the hand. She States she has been clean for quite a while but recently relapsed . She was admitted to the medical service 07/24, started on iv abx and ID consulted. Orthopedics was consulted for recommendations. Review of Systems Review of Systems: Yes all other systems are reviewed and are negative PMFSH Past Medical History Medical History Cocaine abuse Hepatitis C Social History Social History Household Members: Family Housing: Apartment Do you presently have visiting nurse or other home services: No Alcohol intake: unknown Patient Tobacco Use Status: Current everyday Tobacco user Tobacco use type: Cigarette Cigarette Packs Per Day: 1 Cigarettes Per Day: 20.0 Years Smoked: 34 Substance Use Type: Crack/Cocaine and Marijuana service: No Current occupational status: unemployed Meds Allergies Allergy/AdvReac Type Severity Reaction Status Date / Time sumatriptan [From IMITREX] Allergy Intermediate SWELLING Verified 07/25/21 17:41 Active Medications: Current Medications Acetaminophen (Acetaminophen 325 Mg Tablet) 650 mg PO Q6H PRN PRN Reason: Pain, Mild (Pain Scale 1-3) Last Admin: 07/27/21 10:22 Dose: 650 mg Documented by: Hydrocodone Bitart/Acetaminophen (Hydrocodone Bit/Acetam 5/325 Tablet) 1 tab PO Q4H PRN PRN Reason: moderate pain Last Admin: 07/26/21 20:16 Dose: 1 tab Documented by: Diphenhydramine HCl (Diphenhydramine Hcl 25 Mg Tablet) 25 mg PO Q4H PRN PRN Reason: Itching Last Admin: 07/27/21 02:51 Dose: 25 mg Documented by: Enoxaparin Sodium (Enoxaparin Sodium 40 Mg/0.4 Ml Syringe) 40 mg SUBCUT Q24H [facility] Last Admin: 07/26/21 14:10 Dose: 40 mg Documented by: Piperacillin Sod/Tazobactam (Sod 3.375 gm/ Sodium Chloride) 50 mls @ 100 mls/hr IV Q6H [facility] Last Infusion: 07/27/21 11:56 Dose: Infused Documented by: Vancomycin HCl 1,000 mg/ (Sodium Chloride) 270 mls @ 270 mls/hr IV Q12H [facility] Last Admin: 07/27/21 12:36 Dose: 270 mls/hr Documented by: Lorazepam (Lorazepam 2 Mg/Ml Vial) 0.5 mg IVPUSH Q4H PRN PRN Reason: anxiety/agitation Morphine Sulfate (Morphine Sulfate 2 Mg/Ml Cartridge) 2 mg IVPUSH Q2H PRN; Protocol PRN Reason: severe pain Nicotine (Nicotine 14 Mg Patch.Td24) 14 mg TRANSDERMA DAILY [facility] Last Admin: 07/27/21 10:15 Dose: 14 mg Documented by: Ondansetron HCl (Ondansetron Hcl 4 Mg/2 Ml Vial) 4 mg IVPUSH Q8H PRN PRN Reason: Nausea and Vomiting Last Admin: 07/25/21 18:39 Dose: 4 mg Documented by: Pharmacy Consult (Consult Rx Perform Med Rec) 1 each MISCELLANE ONCE PRN PRN Reason: Consult order Pharmacy Consult (Consult Rx Vancomycin Dosing) 1 each MISCELLANE DAILY PRN PRN Reason: Consult order Sodium Chloride (0.9 % Sodium Chloride Flush 3 Ml Syringe) 3 ml IVFLUSH QSHIFT [facility] Last Admin: 07/27/21 10:17 Dose: 3 ml Documented by: Physical Exam Vital Signs: Vital Signs: Last Vital Signs Temp 98.9 F 07/27/21 12:00 Pulse 71 07/27/21 12:00 Resp 18 07/27/21 12:00 BP 111/62 07/27/21 12:00 Pulse Ox 98 07/27/21 12:00 Body Mass Index 22.8 Const: General: cooperative and no acute distress Orientati on/consciousness: patient oriented x3 Resp: Effort & Inspection: normal respiratory effort and able to speak in complete sentences Cardio: Peripheral pulses: Peripheral pulses 2+ throughout Neuro: General: patient oriented x3 Extrem: Other: Left hand has some swelling over the dorsum, primarily between the 1st and 2nd webspace. She is able to make a fist and fully extend all fingers.? The dorsum of the hand is soft. No pain along the flexor tendons. NO pain with axial loading of the IP joints. No pain along the wrist. Results Labs Result Diagrams: 07/27/21 05:33 10/20/21 08:56 Labs: Abnormal lab results 07/27/21 07/27/21 Range/Units 05:33 05:33 RBC 3.65 L (4.20-5.50) X10*6/uL Hgb 11.9 L (12.0-16.0) g/dl Hct 35.5 L (37-47) % Chloride 110 H (96-108) mmol/L C-Reactive Protein 0.85 H (< or = 0.50) mg/dL H & H 07/24/21 07/25/21 07/27/21 Range/Units 08:27 05:32 05:33 Hgb 14.0 13.6 11.9 L (12.0-16.0) g/dl Hct 40.9 40.9 35.5 L (37-47) % All other labs normal. Assessment and Plan (1) Cellulitis: Qualifiers: Laterality: left Site of cellulitis of extremity: upper extremity Status: Resolved Will discuss case with call person provider. At this time continue iv abx and elevation. Procedures Date of Service Date of Service: 07/27/21
--- NOTE | 2021-07-27 13:44 | MHC.CM.PN ---
POSSIBLE ORTHO INTERVENTION PLAN IS HOME ON PO ABX IN 1-2 DAYS
[2021-07-27] MEDS: Enoxaparin Sodium 40 MG/0.4 ML SYRINGE SUBCUT (15:08)
--- NOTE | 2021-07-27 16:11 | W.PM.IDCN ---
History of Present Illness Data of Consult Service Date: 07/27/21 Requesting physician: Adrian Cowart Primary Care Provider: Ap Brice MD [facility] Reason for consult: left hand cellulitis with forearm spread She comes to ER with redness left arm and hand. She had injected cocaine into area three days prior. She has no fever or chills or bacteremia. Review of Systems Review of Systems: Yes all other systems are reviewed and are negative PMFSH Past Medical History Medical History (Updated 09/02/21 @ 00:01 by Ever Calderon) Anxiety Arm abscess Bipolar 1 disorder Cocaine abuse Depression Hepatitis C Family History Family history: reviewed and not pertinent Social History Social History Household Members: Family Housing: Apartment Do you presently have visiting nurse or other home services: No Alcohol intake: current Alcohol intake frequency: 3 or more drinks per day Alcohol type: wine Patient Tobacco Use Status: Current everyday Tobacco user Tobacco use type: Cigarette Cigarette Packs Per Day: 1 Cigarettes Per Day: 20.0 Years Smoked: 34 Substance Use Type: Crack/Cocaine Advance Directives: No service: No Current occupational status: unemployed Meds Allergies Allergy/AdvReac Type Severity Reaction Status Date / Time sumatriptan [From IMITREX] Allergy Intermediate SWELLING Verified 08/30/21 10:20 Active Medications: Current Medications Acetaminophen (Acetaminophen 325 Mg Tablet) 650 mg PO Q6H PRN PRN Reason: Pain, Mild (Pain Scale 1-3) Last Admin: 07/27/21 10:22 Dose: 650 mg Documented by: Hydrocodone Bitart/Acetaminophen (Hydrocodone Bit/Acetam 5/325 Tablet) 1 tab PO Q4H PRN PRN Reason: moderate pain Last Admin: 07/26/21 20:16 Dose: 1 tab Documented by: Diphenhydramine HCl (Diphenhydramine Hcl 25 Mg Tablet) 25 mg PO Q4H PRN PRN Reason: Itching Last Admin: 07/27/21 02:51 Dose: 25 mg Documented by: Enoxaparin Sodium (Enoxaparin Sodium 40 Mg/0.4 Ml Syringe) 40 mg SUBCUT Q24H SUSAN Last Admin: 07/27/21 15:08 Dose: 40 mg Documented by: Vancomycin HCl 1,000 mg/ (Sodium Chloride) 270 mls @ 270 mls/hr IV Q12H [facility] Last Admin: 07/27/21 12:36 Dose: 270 mls/hr Documented by: Lorazepam (Lorazepam 2 Mg/Ml Vial) 0.5 mg IVPUSH Q4H PRN PRN Reason: anxiety/agitation Morphine Sulfate (Morphine Sulfate 2 Mg/Ml Cartridge) 2 mg IVPUSH Q2H PRN; Protocol PRN Reason: severe pain Nicotine (Nicotine 14 Mg Patch.Td24) 14 mg TRANSDERMA DAILY [facility] Last Admin: 07/27/21 10:15 Dose: 14 mg Documented by: Ondansetron HCl (Ondansetron Hcl 4 Mg/2 Ml Vial) 4 mg IVPUSH Q8H PRN PRN Reason: Nausea and Vomiting Last Admin: 07/25/21 18:39 Dose: 4 mg Documented by: Pharmacy Consult (Consult Rx Perform Med Rec) 1 each MISCELLANE ONCE PRN PRN Reason: Consult order Pharmacy Consult (Consult Rx Vancomycin Dosing) 1 each MISCELLANE DAILY PRN PRN Reason: Consult order Sodium Chloride (0.9 % Sodium Chloride Flush 3 Ml Syringe) 3 ml IVFLUSH QSHIFT [facility] Last Admin: 07/27/21 15:09 Dose: Not Given Documented by: Physical Exam Vital Signs: Vital Signs: Last Vital Signs Temp 97.4 F 07/27/21 15:42 Pulse 64 07/27/21 15:42 Resp 18 07/27/21 15:42 BP 120/81 07/27/21 15:42 Pulse Ox 100 07/27/21 15:42 Body Mass Index 22.8 Const: General: cooperative HENMT: Head: Yes normal to inspection Mouth: Normal oral and palatal mucosa present Eyes: General: appearance normal, both eyes and all related structures Resp: Effort & Inspection: normal respiratory effort Cardio: Rate: regular rate Rhythm: regular rhythm GI: Palpation (GI): Soft to palpation and nontender Extrem: Other: left hand swollen and mildly red,can make fist Results Labs CBC & Chem 7: 07/27/21 05:33 07/28/21 08:56 Labs: Short CBC 07/27/21 Range/Units 05:33 WBC 7.4 (4.8-10.8) X10*3/uL Hgb 11.9 L (12.0-16.0) g/dl Hct 35.5 L (37-47) % Plt Count 285 (160-400) X10*3/uL BMP 07/27/21 05:33 Sodium 141 Potassium 4.2 Chloride 110 H Carbon Dioxide 23 BUN 13 Creatinine 0.86 Calcium 9.0 Microbiology Microbiology Results: Microbiology 07/24/21 08:27 Blood - Venous Blood Culture - Preliminary No growth after 48 hours. 07/24/21 08:27 Blood - Venous Blood Culture - Preliminary No growth after 48 hours. Assessment and Plan (1) Sepsis: Status: Resolved (2) Cellulitis: Qualifiers: Laterality: left Site of cellulitis of extremity: upper extremity Status: Resolved Area possible staph/strep Cocaine was injected,possible toxic to vein She is improving Stop Zosyn Continue Vancomycin another day Change to po Augmentin and Doxycycline for a week tomorrow if continues to look better.
[2021-07-27 22:04] LABS: Vancomycin Trough 11.2 mcg/mL (10.0-20.0)
[2021-07-28] MEDS: LORazepam 2 MG/ML VIAL 0.5 MG IVPUSH (00:54)
[2021-07-28 02:20] VITALS: RESP 18
[2021-07-28 04:00] VITALS: BP 129/81; PULSE 65; RESP 17; TEMP 36.8; O2SAT 97
[2021-07-28 07:55] VITALS: BP 122/80; PULSE 58; RESP 18; TEMP 36.5; O2SAT 100
[2021-07-28] MEDS: Nicotine 14 MG PATCH.TD24 TRANSDERMA (08:23)
[2021-07-28] MEDS: 0.9 % Sodium Chloride Flush 3 ML SYRINGE IVFLUSH (08:24)
--- NOTE | 2021-07-28 08:34 | P.EN_ITS ---
Event Note Date of Service: 07/28/21 Event Note: Patient seen this morning at bedside with Dr. Quinteros. Hand is im proving. There is less redness. She is able to make a fist and fully extend all fingers. He dorsum of the hand is soft. Okay to transition to p.o. antibiotics per ID recommendations. We will follow outpatient if needed.
[2021-07-28 09:30] LABS: Creatinine Clr Calc Pharmacy 66.8; Estimated Glomerular Filt Rate > 60
--- NOTE | 2021-07-28 09:51 | P.DS_ITS ---
DS: Providers Provider Date of Service: 07/28/21 Date of admission: 07/24/21 13:35 Primary care physician: Ap Brice MD Consults: 07/24/21 13:36 Addiction Medicine Routine Consulting Provider: Gloria Logan Reason for consultation: cocaine Consult to Care Team Routine Comment: Reason for consultation: cocaine 07/26/21 09:21 Consult to Orthopedics Routine Consulting Provider: Mary Lou Unger Reason for consultation: L hand worsening infection/MRI pending 07/26/21 17:52 Consult to Infectious Diseases Routine Consulting Provider: Isabel Gomez Reason for consultation: L hand cellulitis 07/27/21 07:32 Consult to Orthopedics Routine Consulting Provider: [facility] [place] [facility] Reason for consultation: L hand infection MRI negative DS: Diagnosis Discharge Diagnosis (1) Sepsis: Status: Acute (2) Cellulitis: Status: Acute DS: Summary Hospital Course Hospital Course: Admission HPI Chief Complaint: L arm pain/itching 46-year-old homeless female with history of HCV [treated?] and ongoing injection cocaine abuse presenting with itching and pain of her L hand and forearm for the past 2 days.? Also came in complaining of bugs/worms crawling all over her skin.? She has been living in a hotel after recently spending time in nursing home.? Denies fever, cough, dyspnea, or chest pain.? Denies nausea, vomiting, abdominal pain, or diarrhea.? States she had 2 doses of COVID vaccination.? She was given IV famotidine, diphenydramine, and methylprednisolone in the ED with relief of her itching.? She was found to have cellulitis of her left hand and was given vancomycin and piperacillin.? She met SIRS criteria with leukocytosis, tachycardia, and tachypnea and had a low-grade fever of 100.5.? She denies history of bloodstream infection or endocarditis.? She smokes 1/2 ppd.? She denies injection of opioids or other substances. ?came in for evaluation of itching and left arm pain, sees worms crawling on her skin. Hospital course: # sepsis due to Celluliitis of the hand in setting of injecting cocaine in the arm. - MRI ruled out deep space infection such as osteomyelitis, tenosynovitis, or septic arthritis. Treated wth IV Zosyn and Vancomycin for 4 days. She was evaluated by Ortho with no indication for procedure. The swelling, redness is better. 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 #Hep C, outpatient follow, HIV and Hep B Patient was Time Spent with Patient Time attestation: Total time spent providing and/or coordinating discharge services: Discharge coordination time: Greater than 30 minutes Quality: Stroke Does the patient have a stroke diagnosis?: No Physical Exam Vital Signs: Vital Signs: Last Vital Signs Temp 97.7 F 07/28/21 07:55 Pulse 58 07/28/21 07:55 Resp 18 07/28/21 07:55 BP 122/80 07/28/21 07:55 Pulse Ox 100 07/28/21 07:55 Body Mass Index 22.8 General: AO X 3, no acute distress Resp: CTA bilateral CVS: S1,S2,RRR GI: +BS, NT, no distention Skin: No rash Neuro: motor grossly intact Psych: appropriate affect DS: Data Data Completed and Pending Labs on day of discharge: Laboratory Results - last 24 hr 07/27/21 07/28/21 20:56 08:56 Creatinine 0.84 Estim Creat Clear Calc 66.8 Estimated GFR > 60 Vancomycin Trough 11.2 Preliminary micro results at discharge 07/24/21 08:27 Blood Culture - Preliminary Blood - Venous No growth after 48 hours. 07/24/21 08:27 Blood Culture - Preliminary Blood - Venous No growth after 48 hours. Discharge Plan Discharge Patient Disposition: Home, Self-Care Discharge Diagnosis: Cellulitis of the hand Referrals: Ap Brice MD [Primary Care Provider] - 1 Week Discharge Medications: New amoxicillin-pot clavulanate [Augmentin] 875-125 mg tablet 1 tab PO BID Qty: 13 RF: 0 doxycycline hyclate 100 mg tablet 100 mg PO BID 14 Days Qty: 13 RF: 0 No Action No Known Home Meds RF: 0 Discharge Orders: Discharge Order (Routine); Ordered 07/28/21 Ordered By: Ric Sampson Diet: advance to usual diet Activity on Discharge: As tolerated Stand Alone Forms: Patient Portal Discharge page Care Plan Goals: Full recovery from cellulitis. Health Concerns: Cellulitis of the hand, substance abuse. Plan of Treatment: Take doxycycline and Augmentin as recommended and follow up with your primary care doctor within a week, call for appointment.. Avoid illicit drugs. Assessment: As above
--- NOTE | 2021-07-28 10:10 | MHC.CM.PN ---
PATIENT IS DISCHARGED HOME - SELF CARE. RN AWARE OF PLAN.
[2021-07-28] MEDS: Amoxicillin/Potassium Clav 875 MG TABLET PO (10:40)
[2021-07-28 12:00] VITALS: BP 154/81; PULSE 63; RESP 18; TEMP 36.9; O2SAT 100
[2021-07-28 12:27] LABS: HCV Log PCR <1.18 NOT DETECTED Log IU/mL (NOT DETECTED); HepC Viral Load <15 NOT DETECTED IU/mL (NOT DETECTED)
== END 2021-07-28 14:14 | disposition home or self-care (01) | DRG 720 ==
LOC: HO.ED 10:20 → HO.EDOVER 13:41 → HO.S3 19:53
PROVIDERS: Admitting Provider Family Medicine; Emergency Provider Emergency Medicine; PCP Internal Medicine; Visit Provider Internal Medicine
DX: A41.9 Sepsis, unspecified organism (principal); B19.20 Unspecified viral hepatitis C without hepatic coma; F14.10 Cocaine abuse, uncomplicated; F45.8 Other somatoform disorders; Z20.822 Contact with and (suspected) exposure to COVID-19; Z23 Encounter for immunization; Z59.01 Sheltered homelessness; L03.114 Cellulitis of left upper limb
CPT/HCPCS: 36415; 73090; 73220; 80048; 80076; 80202; 80307; 81001; 81003; 81025; 82565; 83605; 83690; 85025; 85027; 86140; 86704; 86706; 87040; 87340; 87389; 87522; 87635; 90686; 93971; 96365; 96367; 96375; 99284; 99285; A9585; J1200; J1650; J2060; J2405; J2543; J2930; J3370; Q0163

== ENCOUNTER 2021-08-19 20:46 | Emergency (ER) | payer OTHER, SELFPAY ==
--- NOTE | ~2021-08-19 | US_ITS ---
EXAMINATION: US VENOUS WITH DOPPLER UPPER EXTREMITY, BILATERAL CLINICAL INFORMATION: Intravenous drug use. External jugular vein clots. COMPARISON: None TECHNIQUE: Ultrasound of the right and left internal jugular veins were obtained using grayscale and Doppler imaging. FINDINGS: No thrombosis within the visualized right and left internal jugular veins. No adjacent inflammatory change or soft tissue mass. US/US venous duplex UE BI IMPRESSION: No DVT demonstrated in the right and left internal jugular vein.
[2021-08-19 20:53] VITALS: BP 133/82; PULSE 72; RESP 18; TEMP 36.8; O2SAT 100; BMI 21.9
--- NOTE | 2021-08-19 21:41 | ED.GENADULT ---
HPI - General Adult General Chief complaint: General Medical Stated complaint: swelling Time Seen by Provider: 08/19/21 21:41 Source: patient Mode of arrival: ambulatory Limitations: no limitations History of Present Illness HPI narrative: Patient with history of IV DA cocaine use was here last month for cellulitis of the hand this time , she comes as she is not feeling good with bilateral hand swelling without any significant redness also asking for some help for her bipolar disorder Related Data Previous Rx's Medication Instructions Recorded amoxicillin 875 mg-potassium 1 tab PO BID #13 tab 07/28/21 clavulanate 125 mg tablet (Augmentin) doxycycline hyclate 100 mg tablet 100 mg PO BID 14 Days #13 tab 07/28/21 amoxicillin 875 mg-potassium 1 tab PO BID #20 tab 08/20/21 clavulanate 125 mg tablet (Augmentin) doxycycline hyclate 100 mg tablet 100 mg PO BID #20 tab 08/20/21 Allergies Allergy/AdvReac Type Severity Reaction Status Date / Time sumatriptan [From IMITREX] Allergy Intermediate SWELLING Verified 08/19/21 20:53 Review of Systems Review of Systems: Yes all other systems are reviewed and are negative [facility] Past Medical History Medical History Anxiety Bipolar 1 disorder Cocaine abuse Depression Hepatitis C Social History Social History Household Members: Family Housing: Apartment Do you presently have visiting nurse or other home services: No Alcohol intake: current Alcohol intake frequency: 3 or more drinks per day Alcohol type: wine Patient Tobacco Use Status: Current everyday Tobacco user Tobacco use type: Cigarette Cigarette Packs Per Day: 1 Cigarettes Per Day: 20.0 Years Smoked: 34 Use of substances other than those prescribed or required for medical reasons: Yes Substance Use Type: Crack/Cocaine Substance Use Frequency: Recent Binge Last Used Substance: Hours (ago) Any prior treatment program specific to substance use: Yes (Formerly sober for 5 years and has relapsed in last 5 weeks) Advance Directives: No Advance Directives Information Provided: Yes Patient : No service: No Current occupational status: unemployed Physical Exam Vital Signs: Vital Signs: Last Vital Signs Temp 98.3 F 08/19/21 22:00 Pulse 72 08/20/21 00:20 Resp 16 08/20/21 00:20 BP 121/79 08/20/21 00:20 Pulse Ox 99 08/20/21 00:20 Body Mass Index 21.9 Appearance: Alert. Oriented X3. No acute distress. Anxious Eyes: No pallor /icterus HEENT: Pharynx normal. Oral Mucosa moist bilateral external jugular vein phlebitis Neck: Normal inspection. Neck supple. CVS: Normal heart rate and rhythm. Pulses normal. Respiratory: No respiratory distress. Equal air entry bilateral, no wheezing/rales/rhonchi Abdomen: Soft and nontender. Bowel sounds are present, no mass palpable, no CVA tenderness Skin: Skin warm and dry. Normal skin color. Normal skin turgor. Extremities: No lower extremity edema. No calf tenderness IVDA track baird with bilateral dorsum of the hand swelling without any redness or tenderness Neuro: Oriented X 3. No motor deficit. Medical Decision Making MDM Narrative Medical decision making narrative: Patient with cocaine IVDA user with bipolar disorder advised her to follow up with therapist labs are stable to discharge her home on doxycyclin and augmentin Lab Data Lab results reviewed: Yes I reviewed the patient's lab results. Result diagrams: 08/19/21 23:55 08/19/21 21:57 Labs: Lab Results 08/19/21 08/19/21 08/19/21 Range/Units 21:57 21:58 23:55 WBC 10.6 (4.8-10.8) X10*3/uL RBC 4.18 L (4.20-5.50) X10*6/uL Hgb 13.4 (12.0-16.0) g/dl Hct 40.2 (37.0-47.0) % MCV 96.2 (80.0-98.0) fL MCH 32.1 (27.0-33.0) pg MCHC 33.3 (31.0-35.0) g/dl RDW 12.5 (11.0-16.0) % Plt Count 335 (160-400) X10*3/uL MPV 11.3 (9.4-12.3) fL Immature Gran % (Auto) 0.3 (0.0-0.4) % Neut % (Auto) 72.2 (45-73) % Lymph % (Auto) 17.3 L (20-40) % [place] % (Auto) 5.9 (2-11) % Eos % (Auto) 3.9 (0-4) % Baso % (Auto) 0.4 (0-2) % Lymph # (Auto) 1.8 (1.2-4.9) X10*3/uL [place] # (Auto) 0.6 (0.1-1.2) X10*3/uL Eos # (Auto) 0.4 (0.0-0.4) X10*3/uL Baso # (Auto) 0.0 (0.0-0.2) X10*3/uL Abs Immat Gran (auto) 0.03 (0.00-0.03) X10*3/uL Absolute Neuts (auto) 7.6 (2.0-8.3) x10*3/uL Absolute Nucleated RBC 0.000 (0.0-0.012) X10*3/uL Nucleated RBC % (auto) 0.0 (0.0-0.2) /100WBC Sodium 135 (135-145) mmol/L Potassium 4.8 (3.3-5.1) mmol/L Chloride 107 (96-108) mmol/L Carbon Dioxide 20 L (22-29) mmol/L Anion Gap 13 (12-20) BUN 10 (9-16) mg/dL Creatinine 0.82 (0.5-1.4) mg/dL Estim Creat Clear Calc 68.5 Estimated GFR > 60 Random Glucose 88 (60-115) mg/dL Lactic Acid (0.5-2.0) mmol/L Calcium 8.9 (8.4-10.2) mg/dL Total Bilirubin 0.3 (0.0-1.0) mg/dL Direct Bilirubin < 0.2 (0.0-0.5) mg/dL AST 25 (5-31) U/L ALT 13 (0-31) U/L Alkaline Phosphatase 68 (39-117) U/L Total Protein 6.6 (6.5-8.0) g/dL Albumin 3.7 (3.5-5.0) g/dL COVID-19 (RASHEED) Negative (Negative) COVID-19 Clin Com See Note 08/19/21 Range/Units 23:55 WBC (4.8-10.8) X10*3/uL RBC (4.20-5.50) X10*6/uL Hgb (12.0-16.0) g/dl Hct (37.0-47.0) % MCV (80.0-98.0) fL MCH (27.0-33.0) pg MCHC (31.0-35.0) g/dl RDW (11.0-16.0) % Plt Count (160-400) X10*3/uL MPV (9.4-12.3) fL Immature Gran % (Auto) (0.0-0.4) % Neut % (Auto) (45-73) % Lymph % (Auto) (20-40) % [place] % (Auto) (2-11) % Eos % (Auto) (0-4) % Baso % (Auto) (0-2) % Lymph # (Auto) (1.2-4.9) X10*3/uL [place] # (Auto) (0.1-1.2) X10*3/uL Eos # (Auto) (0.0-0.4) X10*3/uL Baso # (Auto) (0.0-0.2) X10*3/uL Abs Immat Gran (auto) (0.00-0.03) X10*3/uL Absolute Neuts (auto) (2.0-8.3) x10*3/uL Absolute Nucleated RBC (0.0-0.012) X10*3/uL Nucleated RBC % (auto) (0.0-0.2) /100WBC Sodium (135-145) mmol/L Potassium (3.3-5.1) mmol/L Chloride (96-108) mmol/L Carbon Dioxide (22-29) mmol/L Anion Gap (12-20) BUN (9-16) mg/dL Creatinine (0.5-1.4) mg/dL Estim Creat Clear Calc Estimated GFR Random Glucose (60-115) mg/dL Lactic Acid 0.8 (0.5-2.0) mmol/L Calcium (8.4-10.2) mg/dL Total Bilirubin (0.0-1.0) mg/dL Direct Bilirubin (0.0-0.5) mg/dL AST (5-31) U/L ALT (0-31) U/L Alkaline Phosphatase (39-117) U/L Total Protein (6.5-8.0) g/dL Albumin (3.5-5.0) g/dL COVID-19 (RASHEED) (Negative) COVID-19 Clin Com Discharge Plan Discharge Clinical Impression: Cocaine abuse Bipolar disorder Qualifiers: Active/Remission status: currently active Current bipolar episode type: mixed Current episode severity: moderate Qualified Code(s): F31.62 - Bipolar disorder, current episode mixed, moderate Patient Disposition: Home, Self-Care Instructions: Cocaine Abuse (ED), Bipolar Disorder (ED) Additional Instructions: Stop using cocaine Follow-up with your therapist /psychiatric Prescriptions: New doxycycline hyclate 100 mg tablet 100 mg PO BID Qty: 20 RF: 0 amoxicillin-pot clavulanate [Augmentin] 875-125 mg tablet 1 tab PO BID Qty: 20 RF: 0 No Action doxycycline hyclate 100 mg tablet 100 mg PO BID 14 Days Qty: 13 RF: 0 amoxicillin-pot clavulanate [Augmentin] 875-125 mg tablet 1 tab PO BID Qty: 13 RF: 0
[2021-08-19 22:00] VITALS: BP 124/78; PULSE 74; RESP 15; TEMP 36.8; O2SAT 99
[2021-08-19 22:21] LABS: Alanine Aminotransferase 13 U/L (0-31); Albumin Level 3.7 g/dL (3.5-5.0); Alkaline Phosphatase 68 U/L (39-117); Anion Gap 13 (12-20); Aspartate Amino Transferase 25 U/L (5-31); Bilirubin Direct < 0.2 mg/dL (0.0-0.5); Bilirubin Total 0.3 mg/dL (0.0-1.0); Blood Urea Nitrogen 10 mg/dL (9-16); Calcium 8.9 mg/dL (8.4-10.2); Carbon Dioxide 20 mmol/L (22-29); Chloride 107 mmol/L (96-108); Creatinine Clr Calc Pharmacy 68.5; Estimated Glomerular Filt Rate > 60; Glucose Random 88 mg/dL (60-115); Potassium 4.8 mmol/L (3.3-5.1); Sodium 135 mmol/L (135-145); Total Protein 6.6 g/dL (6.5-8.0)
[2021-08-19 22:24] LABS: COVID-19 Test Negative (Negative)
[2021-08-19] MEDS: 0.9 % Sodium Chloride 1,000 ML 999 ML IVCONT (23:27)
[2021-08-20 00:08] LABS: Basophils Percent Auto 0.4 % (0-2); Eosinophils Absolute Auto 0.4 X10*3/uL (0.0-0.4); Eosinophils Percent Auto 3.9 % (0-4); Hematocrit 40.2 % (37.0-47.0); Hemoglobin 13.4 g/dl (12.0-16.0); Imm Gran Abs Auto 0.03 X10*3/uL (0.00-0.03); Imm Gran Pct Auto 0.3 % (0.0-0.4); Lymphocytes Absolute Auto 1.8 X10*3/uL (1.2-4.9); Lymphocytes Percent Auto 17.3 % (20-40); Mean Corpuscular HGB Conc 33.3 g/dl (31.0-35.0); Mean Corpuscular Hemoglobin 32.1 pg (27.0-33.0); Mean Corpuscular Volume 96.2 fL (80.0-98.0); Mean Platelet Volume 11.3 fL (9.4-12.3); Monocytes Absolute Auto 0.6 X10*3/uL (0.1-1.2); Monocytes Percent Auto 5.9 % (2-11); Neutrophils Absolute Auto 7.6 x10*3/uL (2.0-8.3); Neutrophils Percent Auto 72.2 % (45-73); Platelet Count 335 X10*3/uL (160-400); Red Blood Count 4.18 X10*6/uL (4.20-5.50); Red Cell Distribution Width 12.5 % (11.0-16.0); White Blood Count 10.6 X10*3/uL (4.8-10.8)
[2021-08-20 00:11] LABS: MANUAL DIFF FLAG NO
[2021-08-20] MEDS: Amoxicillin/Potassium Clav 875 MG TABLET PO (00:13)
[2021-08-20 00:20] VITALS: BP 121/79; PULSE 72; RESP 16; O2SAT 99
[2021-08-20 00:26] LABS: Lactic Acid 0.8 mmol/L (0.5-2.0)
== END 2021-08-20 00:35 | disposition home or self-care (01) ==
PROVIDERS: Emergency Provider Internal Medicine; PCP Internal Medicine
DX: F31.62 Bipolar disorder, current episode mixed, moderate (principal); F14.10 Cocaine abuse, uncomplicated; Z20.822 Contact with and (suspected) exposure to COVID-19
CPT/HCPCS: 36415; 80048; 80076; 83605; 85025; 87040; 87635; 93970; 96360; 99284

== ENCOUNTER → 2021-08-30 10:07 | Outpatient (BNVA) | payer OTHER, SELFPAY | PROVIDERS: PCP Nurse Practitioner Family; Visit Provider Internal Medicine | DX: F14.10 Cocaine abuse, uncomplicated (principal); Z51.81 Encounter for therapeutic drug level monitoring; Z79.899 Other long term (current) drug therapy; F17.200 Nicotine dependence, unspecified, uncomplicated; Z71.6 Tobacco abuse counseling | CPT/HCPCS: 80305; 99202 ==

== ENCOUNTER 2021-09-01 10:49 | Emergency (ER) | payer OTHER, SELFPAY ==
--- NOTE | ~2021-09-01 | US_ITS ---
EXAMINATION: US VENOUS WITH DOPPLER UPPER EXTREMITY, BILATERAL CLINICAL INFORMATION: Edema and swelling. COMPARISON: None TECHNIQUE: Ultrasound of the upper extremity is performed using compression sonography and color and pulse Doppler flow with assessment of augmentation of flow. There is also imaging and Doppler assessment of the jugular and subclavian veins. Spectral analysis with color-flow imaging is performed. FINDINGS: Respiratory variation, normal compression, and augmented flow are noted throughout the upper extremity including the axillary, brachial, cubital, and radial and ulnar veins. There is normal flow in the internal jugular and subclavian veins. There is no visible deep or superficial thrombophlebitis. If the patient's symptoms progress, a followup ultrasound in 5 -7 days might be of value to exclude proximal propagation from a nonvisualized distal arm vein. US/US venous duplex UE BI IMPRESSION: No DVT demonstrated in the bilateral lower extremities.
[2021-09-01 11:01] VITALS: BP 134/72; PULSE 86; RESP 18; TEMP 36.2; O2SAT 99; BMI 22.6
--- NOTE | 2021-09-01 12:20 | ED_ITS ---
HPI - Skin/Abscess/Foreign Bdy General Chief complaint: Skin/Abscess/Foreign Body Stated complaint: rule out blood clot Time Seen by Provider: 09/01/21 11:43 Source: patient Mode of arrival: ambulatory Limitations: no limitations History of Present Illness HPI narrative: Patient comes to the emergency room after being seen by her primary care physician fluid apparently the patient, the CP is concerned for block. Patient has been seen here on August 19, diagnosed with bilateral hand cellulitis, a script for doxycycline and Augmentin was sent to the patient's pharmacy. Patient states that the pharmacist only gave her doxycycline since the 2 medications counteract each other. Patient denies fever chills. Patient states that she uses cocaine, has been active user for approximately 2 months. Patient states that her main concern is that she is seeing worms that, of her extremities her head and her nose. Related Data Previous Rx's Medication Instructions Recorded amoxicillin 875 mg-potassium 1 tab PO BID #13 tab 07/28/21 clavulanate 125 mg tablet (Augmentin) doxycycline hyclate 100 mg tablet 100 mg PO BID 14 Days #13 tab 07/28/21 amoxicillin 875 mg-potassium 1 tab PO BID #20 tab 08/20/21 clavulanate 125 mg tablet (Augmentin) doxycycline hyclate 100 mg tablet 100 mg PO BID #20 tab 08/20/21 Allergies Allergy/AdvReac Type Severity Reaction Status Date / Time sumatriptan [From IMITREX] Allergy Intermediate SWELLING Verified 08/30/21 10:20 Review of Systems Review of Systems: Constitutional : No Weight loss, No Fever, No Chills, No Night Sweats, No Fatigue, No Malaise ENT/Mouth : No Hearing loss, No Ear Pain, No Nasal Congestion, No Sinus Pain, No Hoarseness, No sore throat, No Rhinorrhea, No Swallowing Difficulty Eyes: No Eye Pain, No Swelling, No Redness, No Foreign Body, No Discharge, No Vision Changes Cardiovascular : No Chest Pain, No SOB, No Dyspnea on Exertion, No Orthopnea, No Edema, No Palpitations Respiratory : No Cough, No Sputum, No Wheezing, No Smoke Exposure, No Dyspnea Gastrointestinal : No Nausea, No Vomiting, No Diarrhea, No Constipation, No abdominal Pain, No Hematochezia, No Melena Genitourinary : no irregular bleeding, No Dysuria, No Urinary Frequency, No Hematuria, No Urinary Incontinence, No Urgency, No Flank Pain, No Urinary Flow Changes, No Hesitancy Musculoskeletal : No joint pain, No Myalgias, No Joint Swelling Skin : Patient complaining redness in both hands, states that she has worms coming out of her upper extremities, bilateral lower extremities, through her scalp and nose Neuro : No Weakness, No Numbness, No Paresthesias, No Loss of Consciousness, No Dizziness, No Headache Psych : No Anxiety/Panic, No Depression, No SI/HI/AH/VH, admits to cocaine abuse Heme/Lymph: No Bruising, No Bleeding,No Lymphadenopathy Endocrine : No Polyuria, No Polydipsia, No Temperature Intolerance [facility] Past Medical History Medical History (Updated 09/01/21 @ 14:55 by Nasima Stone MD) Anxiety Arm abscess Bipolar 1 disorder Cocaine abuse Depression Hepatitis C Social History Social History Household Members: Family Housing: Apartment Do you presently have visiting nurse or other home services: No Alcohol intake: current Alcohol intake frequency: 3 or more drinks per day Alcohol type: wine Patient Tobacco Use Status: Current everyday Tobacco user Tobacco use type: Cigarette Cigarette Packs Per Day: 1 Cigarettes Per Day: 20.0 Years Smoked: 34 Substance Use Type: Crack/Cocaine Advance Directives: No service: No Current occupational status: unemployed Physical Exam Vital Signs: Vital Signs: Last Vital Signs Temp 99.1 F 09/01/21 13:30 Pulse 74 09/01/21 13:30 Resp 16 09/01/21 13:30 BP 165/90 H 09/01/21 13:30 Pulse Ox 100 09/01/21 13:30 Body Mass Index 22.6 Const: Other: Appearance: Alert. Oriented X3. No acute distress. Eyes: Pupils equal, round and reactive to light. ENT: Pharynx normal. Nostrils within normal limits. Neck: Normal inspection. Neck supple. No lymph nodes noted. No crepitus CVS: Normal heart rate and rhythm. Pulses normal. Normal S1 and S2 Respiratory: No respiratory distress. Breath sounds normal. No Wheezing. No rales Abdomen: Soft and nontender. No rigidity. No distention. good BS x4 Skin: Skin warm and dry. Patient's scalp within normal limits, patient's lower extremity has scabs, likely from picking, same in the face. Patient has track baird in bilateral upper extremities. C extremities below Extremities: No lower extremity edema. Patient's hands bilaterally are erythematous in the dorsum, patient is able to flex and extend all fingers in the hand without any pain. There is no pus draining from any of the wounds. Patient does not have any scabies like tracks in upper extremities/rest of skin. Neuro: Oriented X 3. No motor deficit. No sensory deficit. Moving all extermi ties. No slurred speech. Course Course Course Narrative: I discussed the plan with the patient, we will go ahead get blood cultures, blood work, ultrasound. Patient is convinced that she has worms coming out of her scalp, nostrils and extremities. I discussed with the patient that it is common to have insenct-like sensation, also discussed with the patient that it is common to have cocaine induced vasculitis which causes continues manifestations. On physical exam, patient does have needle track baird and scabs likely from picking. Patient's scalp and no stress all within normal limits, patient is still convinced that she has worms crawling under her skin. Also, discussed with the patient that she can follow-up with her primary care physician and they can discuss a referral to Dermatology for a skin biopsy. Patient also requesting help for detox. Mr Hart from the refinery operator vapor recovery unit team is currently speaking with the patient. cricket coach and the care team discussed possible places where the patient could go. Patient declined all of them. Patient states that she will do her own phone calls at home. Patient was provided with information S different programs where she can call. I was informed by the refinery operator vapor recovery unit that there is a facility that will take the patient if we provide copies of the ultrasound report and the labs. Patient's ultrasound became available at 14:50, when I went to look for the patient to discuss the ultrasound results, labs , treatment and plan, patient and her family member were not at bedside. Patient eloped MDM - Skin/Abscess/Foreign Bdy Lab Data Result diagrams: 09/01/21 13:19 09/01/21 13:19 Labs: Lab Results 09/01/21 09/01/21 Range/Units 13:19 13:19 WBC 8.8 (4.8-10.8) X10*3/uL RBC 4.33 (4.20-5.50) X10*6/uL Hgb 13.9 (12.0-16.0) g/dl Hct 41.6 (37.0-47.0) % MCV 96.1 (80.0-98.0) fL MCH 32.1 (27.0-33.0) pg MCHC 33.4 (31.0-35.0) g/dl RDW 12.7 (11.0-16.0) % MPV Not Reportable Immature Gran % (Auto) 0.2 (0.0-0.4) % Neut % (Auto) 72.2 (45-73) % Lymph % (Auto) 20.1 (20-40) % [place] % (Auto) 5.9 (2-11) % Eos % (Auto) 1.1 (0-4) % Baso % (Auto) 0.5 (0-2) % Lymph # (Auto) 1.8 (1.2-4.9) X10*3/uL [place] # (Auto) 0.5 (0.1-1.2) X10*3/uL Eos # (Auto) 0.1 (0.0-0.4) X10*3/uL Baso # (Auto) 0.0 (0.0-0.2) X10*3/uL Abs Immat Gran (auto) 0.02 (0.00-0.03) X10*3/uL Absolute Neuts (auto) 6.4 (2.0-8.3) x10*3/uL Absolute Nucleated RBC 0.000 (0.0-0.012) X10*3/uL Nucleated RBC % (auto) 0.0 (0.0-0.2) /100WBC Sodium 139 (135-145) mmol/L Potassium 4.3 (3.3-5.1) mmol/L Chloride 108 (96-108) mmol/L Carbon Dioxide 20 L (22-29) mmol/L Anion Gap 15 (12-20) BUN 13 (9-16) mg/dL Creatinine 0.78 (0.5-1.4) mg/dL Estim Creat Clear Calc 72.0 Estimated GFR > 60 Random Glucose 89 (60-115) mg/dL Calcium 9.3 (8.4-10.2) mg/dL Total Bilirubin 0.3 (0.0-1.0) mg/dL Direct Bilirubin 0.2 (0.0-0.5) mg/dL AST 27 (5-31) U/L ALT 13 (0-31) U/L Alkaline Phosphatase 64 (39-117) U/L Total Protein 7.3 (6.5-8.0) g/dL Albumin 4.2 (3.5-5.0) g/dL Imaging Data Venous US: Radiologist's impression: TECHNIQUE: Ultrasound of the upper extremity is performed using compression sonography and color and pulse Doppler flow with assessment of augmentation of flow. There is also imaging and Doppler assessment of the jugular and subclavian veins. Spectral analysis with color-flow imaging is performed. FINDINGS: Respiratory variation, normal compression, and augmented flow are noted throughout the upper extremity including the axillary, brachial, cubital, and radial and ulnar veins. There is normal flow in the internal jugular and subclavian veins. There is no visible deep or superficial thrombophlebitis. If the patient's symptoms progress, a followup ultrasound in 5 -7 days might be of value to exclude proximal propagation from a nonvisualized distal arm vein. US/US venous duplex UE BI IMPRESSION: No DVT demonstrated in the bilateral lower extremities. Discharge Plan Discharge Clinical Impression: Cellulitis, Substance abuse Patient Disposition: Elopement Prescriptions: No Action doxycycline hyclate 100 mg tablet 100 mg PO BID 14 Days Qty: 13 RF: 0 amoxicillin-pot clavulanate [Augmentin] 875-125 mg tablet 1 tab PO BID Qty: 13 RF: 0 doxycycline hyclate 100 mg tablet 100 mg PO BID Qty: 20 RF: 0 amoxicillin-pot clavulanate [Augmentin] 875-125 mg tablet 1 tab PO BID Qty: 20 RF: 0 Discharge Date/Time: 09/01/21 14:54
--- NOTE | 2021-09-01 13:17 | MHC.RECOVSUP ---
? Reason for consult:Recovery Support o Current location:ED [address] o Identified substance use concern:Cocaine, ETOH - Withdrawal - Seeking ATS (detox) - Support ? Intervention: o ATS bed search started/completed/in process o Community resources provided o Harm reduction discussion ? Plan: o Bed search in progress to o Patient to follow up with [facility] after discharge ? Additional information: Patient was seeking detox, Pt. changed her mind and wants to do her own bed search. Dr. Stone was notified.
--- NOTE | 2021-09-01 13:17 | MHC.RECOVSUP ---
Recovery Support note: Patient is a 46 year old Ethiopian speaking female who presented to [facility] ED after being sent by her PCP due to cellulitis. This television script writer and Circuit Breaker Supervisor met with patient to discuss substance use treatment options. Patient tearful, explaining that she has been turned away from all facilities because of a suicide attempt a long time ago and her current report of experiencing bugs crawling on her. This television script writer offered to refer patient to dual diagnosis unit and patient declined. Patient reports she is not in the right state of mind to leave for treatment and that she will return if she would like assistance with placement. Patient accepted information on ATS/EATS and dual diagnosis programs. Discussed case with patient's ED provider.
[2021-09-01 13:30] VITALS: BP 165/90; PULSE 74; RESP 16; TEMP 37.3; O2SAT 100
[2021-09-01 13:36] LABS: MANUAL DIFF FLAG SCAN; Monocytes Percent Auto 5.9 % (2-11); PLT CLUMP 1; Red Cell Distribution Width 12.7 % (11.0-16.0); SCAN SMEAR FLAG 1
[2021-09-01 13:38] LABS: Basophils Percent Auto 0.5 % (0-2); Eosinophils Absolute Auto 0.1 X10*3/uL (0.0-0.4); Eosinophils Percent Auto 1.1 % (0-4); Hematocrit 41.6 % (37.0-47.0); Hemoglobin 13.9 g/dl (12.0-16.0); Imm Gran Abs Auto 0.02 X10*3/uL (0.00-0.03); Imm Gran Pct Auto 0.2 % (0.0-0.4); Lymphocytes Absolute Auto 1.8 X10*3/uL (1.2-4.9); Lymphocytes Percent Auto 20.1 % (20-40); Mean Corpuscular HGB Conc 33.4 g/dl (31.0-35.0); Mean Corpuscular Hemoglobin 32.1 pg (27.0-33.0); Mean Corpuscular Volume 96.1 fL (80.0-98.0); Monocytes Absolute Auto 0.5 X10*3/uL (0.1-1.2); Neutrophils Absolute Auto 6.4 x10*3/uL (2.0-8.3); Neutrophils Percent Auto 72.2 % (45-73); Red Blood Count 4.33 X10*6/uL (4.20-5.50); White Blood Count 8.8 X10*3/uL (4.8-10.8)
[2021-09-01 14:26] LABS: Alanine Aminotransferase 13 U/L (0-31); Albumin Level 4.2 g/dL (3.5-5.0); Alkaline Phosphatase 64 U/L (39-117); Anion Gap 15 (12-20); Aspartate Amino Transferase 27 U/L (5-31); Bilirubin Direct 0.2 mg/dL (0.0-0.5); Bilirubin Total 0.3 mg/dL (0.0-1.0); Blood Urea Nitrogen 13 mg/dL (9-16); Calcium 9.3 mg/dL (8.4-10.2); Carbon Dioxide 20 mmol/L (22-29); Chloride 108 mmol/L (96-108); Estimated Glomerular Filt Rate > 60; Glucose Random 89 mg/dL (60-115); Potassium 4.3 mmol/L (3.3-5.1); Sodium 139 mmol/L (135-145); Total Protein 7.3 g/dL (6.5-8.0)
[2021-09-01 15:32] LABS: Platelet Count 205 X10*3/uL (160-400)
[2021-09-01 16:31] LABS: SLIDE REVIEW VERIFIED
== END 2021-09-01 14:54 | disposition left against medical advice (07) ==
PROVIDERS: Emergency Provider Emergency Medicine; PCP Nurse Practitioner Family
DX: L03.113 Cellulitis of right upper limb (principal); L03.114 Cellulitis of left upper limb; F14.10 Cocaine abuse, uncomplicated; R60.0 Localized edema; F17.210 Nicotine dependence, cigarettes, uncomplicated; Z79.899 Other long term (current) drug therapy; Z71.6 Tobacco abuse counseling
CPT/HCPCS: 80048; 80076; 85025; 87040; 93970; 99283; 99284

== ENCOUNTER 2021-09-07 23:57 | Emergency (ER) | payer OTHER, SELFPAY ==
[2021-09-08 00:15] VITALS: BP 127/76; PULSE 87; RESP 18; TEMP 36.8; O2SAT 98; BMI 22.6
[2021-09-08 00:53] LABS: Appearance Urine CLEAR; Color Urine YELLOW; Glucose Urine UA NEG (NEG); Leukocyte Esterase Urine NEG (NEG); Nitrite Urine NEG (NEG); PH 5.5 (5.0-8.0); Specific Gravity - Urine >= 1.030 (1.005-1.025); UACC Culture Trigger NO; Urine Blood 3+ (NEG); Urine Ketones NEG (NEG); Urine Protein NEG (NEG-TRACE)
[2021-09-08 01:01] LABS: COVID-19 Test Negative (Negative)
[2021-09-08 01:16] LABS: Amphetamine Screen Urine Not Detected (Not Detect); Barbiturates, Urine Not Detected (Not Detect); Benzodiazepines Screen Urine Not Detected (Not Detect); Cannabinoid Screen Urine Not Detected (Not Detect); Cocaine Screen Urine POSITIVE (Not Detect); Fentanyl, urine POSITIVE (Not Detect); Opiate Screen Urine Not Detected (Not Detect); Phencyclidine Screen Urine Not Detected (Not Detect)
[2021-09-08 01:42] LABS: Mucus Urine 1+ /LPF; Renal Epithelial Cells Urine 1+ /LPF; Squamous Epithelial Cell Urine TRACE /LPF; WBC Urine 0 /HPF (0-4)
--- NOTE | 2021-09-08 02:40 | PC.NURSE ---
RN went to waiting room to retrieve patient to bring her back to assigned bed in ER, when patient called for the first time she was in the bathroom per father. RN waiting 5 minutes and called patient again, patient was still in the bathroom. RN waiting another 5 minutes and called patient for a third time and still in the bathroom. RN went to bathroom and saw through crack of door a tunring kit hanging from the side rail in bathroom, RN knocked on the door and asked patient to open the door, pt refused to, RN opened bathroom and saw needle on the sink. Pt admitted to using Cocaine in the bathroom. RN asked patient if she could take the needle to throw it away in the sharps box, patient said yes. RN threw away needle in sharps, RN returned to bathroom and asked patient to come back with RN to the ER bed she is assigned to. Patient started calling RN a judgmental asshole . RN did not make any statements or accuse patient of anything. RN educated patient on safety and not being allowed to use drugs in the ER. Patient continued to call RN an asshole . Pt noted to get loud yelling at RN, RN left to return to ER nurses station to get charge out clerk. When returned to the waiting room patient left. Per patients dad she left ER to smoke a cigarette . meat cutting teacher spoke with patient father, the patient and father left ER.
--- NOTE | 2021-09-08 02:45 | PC.NURSE ---
SPEAKING WITH PATIENTS FATHER IN THE WAITING ROOM, PATIENT REFUSING TO COME IN TO THE TREATMENT AREA. STATING SHE JUST NEEDS A CIGARETTE AND LEAVING. AMBULATING STEADILY FOR DEPARTMENT. FATHER OF PATIENT FOLLOWING BEHIND HER. FATHER THAN RETURNING TO THE EMERGENCY DEPARTMENT, STATING THE WAY THE PATIENT WAS TREATED WAS UNFAIR. EXPLAINING THAT THE NURSE WAS CALLING THE PATIENT INTO THE TREATMENT AREA AND KNOCKED ON THE BATHROOM DOOR AND SAW A NEEDLE BECAUSE THE PATIENT WAS USING IN THE BATHROOM, SECURITY CALLED AND THE PLAN WAS TO TAKE PATIENTS BELONGINGS ONCE SHE ENTER THE AREA FOR A ROOM. FATHER VISIBLE UPSET YOU HAVE RUINED HER CHANCES FOR DETOX, I HAVE BEEN TRYING FOR WEEKS TO GET HER HELP. 3 WEEKS AGO THE DOCTOR WAS ACTING THE SAME WAY AND SHE DID NOT WANT TREATMENT THEN BECAUSE OF EVERYONE'S ATTITUDE TOWARDS ADDICTS GO TALK TO THAT NURSE AND THEN YOU KNOW WHAT HAVE HER COME OUTSIDE AND TALK TO ME . EXPLAINING THE NURSE WAS NOT GOING TO MEET HIM OUTSIDE OR THE PATIENT. THAT IF THE PATIENT DOES NOT WANT TO SEEK TREATMENT THAN BOTH HER FATHER OR HOSPITAL STAFF CAN NO FORCE HER. TALKED TO FATHER ABOUT SECTION 35, OR IF PATIENT WAS REPORTING HARM TO HERSELF OR OTHERS POLICE COULD THEN SECTION HER TO THE HOSPITAL. PATIENT WAS NOT REPORTING SI OR HI THOUGHTS OR PLAN. PATIENT WALKING OFF PROPERTY ACCORDING TO THE FATHER TO SMOKE A CIGARETTE.
== END 2021-09-08 02:45 | disposition left against medical advice (07) ==
PROVIDERS: Emergency Provider Emergency Medicine; PCP Nurse Practitioner Family
DX: R60.0 Localized edema (principal); Z79.899 Other long term (current) drug therapy; Z20.822 Contact with and (suspected) exposure to COVID-19
CPT/HCPCS: 36415; 80307; 81001; 87635; 99283

== ENCOUNTER 2023-01-26 02:12 | Emergency (ER) | payer OTHER, SELFPAY ==
[2023-01-26 02:14] VITALS: BP 144/94; PULSE 75; RESP 18; TEMP 36.8; O2SAT 100; BMI 21.9
--- NOTE | 2023-01-26 02:40 | ED.SKABFB ---
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 She denies any associated fevers or chills, she denies any dental pain/your pain/sinus infection. Patient states that she injected approximately 2 weeks prior to the development of the source which occurred 3 days prior to presenting to urgent care on Monday. Related Data Previous Rx's Medication Instructions Recorded hydroxyzine HCl 25 mg tablet 25 mg PO Q6-8H PRN itching #90 tabs 10/12/21 bupropion HCl 100 mg tablet,12 hr 100 mg PO BID 90 days #180 tabs 12/09/21 sustained-release prednisone 10 mg tablet 10 mg PO DAILY #5 tabs 01/26/23 Allergies Allergy/AdvReac Type Severity Reaction Status Date / Time sumatriptan [From IMITREX] Allergy Intermediate SWELLING Verified 10/12/21 15:17 Review of Systems Review of Systems: Pertinent positives and negatives as stated in HPI [facility] Past Medical History Medical History (Updated 01/26/23 @ 03:08 by Yareli Guadalupe MD) Anxiety Arm abscess Bipolar 1 disorder Cocaine abuse Depression Hepatitis C Social History Social History (Updated 10/12/21 @ 14:33 by Christy Kay CMA) Household Members: Family Housing: Apartment Do you presently have visiting nurse or other home services: No Alcohol intake: current Alcohol intake frequency: 3 or more drinks per day Alcohol type: wine Patient Tobacco Use Status: Current everyday Tobacco user Tobacco use type: Cigarette Cigarette Packs Per Day: 0.5 Cigarettes Per Day: 10 Years Smoked: 34 Substance Use Type: Crack/Cocaine Advance Directives: No Advance Directives Information Provided: Yes service: No Current occupational status: unemployed Physical Exam Vital Signs: Vital Signs: Last Vital Signs Temp 98.2 F 01/26/23 02:14 Pulse 75 01/26/23 02:14 Resp 18 01/26/23 02:14 BP 144/94 H 01/26/23 02:14 Pulse Ox 100 01/26/23 02:14 O2 Del Method Room Air 01/26/23 02:14 BMI result Body Mass Index 21.9 VITAL SIGNS: Reviewed. GENERAL: Well developed, well nourished, in no acute distress. HEAD: Normocephalic/atraumatic EYES: PERRLA, EOMI EARS: Ext canals without abnormality, TMs non-bulging and non-erythematous NOSE: Nares patent bilateral OROPHARYNX: no oral lesions noted, posterior pharynx clear, no dental caries FACIAL: Please see pictures attached, no obvious cellulitis or warmth, there is induration with visualization of internal structures and possible involvement of right ear lobe NECK: Supple, no adenopathy LUNGS: Normal breath sounds. No adventitious sounds or accessory muscle use. SpO2<100> CARDIOVASCULAR: Regular rate and rhythm without noted murmurs ABDOMEN: Soft, non-tender, non-distended with bowel sounds. MUSCULOSKELETAL: No tenderness, deformities, or effusions noted on gross inspection. EXTREMITIES: No cyanosis, clubbing or edema. SKIN: Inspection of the skin reveals no rashes NEUROLOGIC: Alert and oriented x 4. Strength and sensation to light touch were grossly intact x 4. 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 She was instructed to stop the mupirocin as she is already on Bactrim and I will add a low-dose steroid to her regimen as on further review of literature there is some data the suggest that this can assist in the healing process. Differential Diagnosis Please see the discussion above Discharge Plan Discharge Clinical Impression: Adverse effect of levamisole, Vasculitis, Cocaine use disorder Patient Disposition: Home, Self-Care Instructions: Cocaine Abuse (ED) Additional Instructions: 1. 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 ------stop cocaine ------complete the course of antibiotics, stop the mupirocin ------may apply [id number] antibiotic ointment ------you will be started on a low-dose steroid 2. Is very important that you follow-up with your primary care provider braulio. Return to the ER for any worsening of symptoms. Prescriptions: New prednisone 10 mg tablet 10 mg PO DAILY Qty: 5 0RF No Action bupropion HCl 100 mg tablet sustained-release 12 hr 100 mg PO BID 90 Days Qty: 180 0RF hydroxyzine HCl 25 mg tablet 25 mg PO Q6-8H PRN (Reason: itching) Qty: 90 0RF
[2023-01-26] MEDS: predniSONE 10 MG TABLET PO (03:15)
== END 2023-01-26 03:21 | disposition home or self-care (01) ==
PROVIDERS: Emergency Provider Student in an Organized Health Care Education/Training Program
DX: I77.6 Arteritis, unspecified (principal); T37.4X5A Adverse effect of anthelminthics, initial encounter; F14.188 Cocaine abuse with other cocaine-induced disorder; Y92.9 Unspecified place or not applicable
CPT/HCPCS: 99283

== ENCOUNTER 2023-07-02 12:03 | Emergency (ER) | payer OTHER, SELFPAY ==
[2023-07-02] VITALS (7 sets, daily range): BP systolic 150–178; BP diastolic 82–108; PULSE 51–94; RESP 16–18; TEMP 36.6–36.8; O2SAT 97–100; BMI 21.0
--- NOTE | 2023-07-02 12:55 | ED.GENADULT ---
HPI - General Adult General Chief complaint: ETOH/Substance Use Stated complaint: WANTS DETOX FROM HEROIN PER EMS Time Seen by Provider: 07/02/23 12:46 Source: patient, EMS and RN notes reviewed Mode of arrival: EMS Limitations: no limitations History of Present Illness HPI narrative: Patient is a 48-year-old female with history of bipolar disorder, hepatitis-C, cocaine and heroin use presenting to the emergency department requesting detox from heroin. Patient states that she last used heroin 5 hours ago and uses approximately 1 bundle daily. Also admits to using cocaine. Denies any alcohol or other drug use. She denies any suicidal ideation, homicidal ideation, auditory or visual hallucinations. Denies any physical symptoms currently, does report anxiety. MD complaint: Requesting detox Onset (ago): hour(s) Associated symptoms: other (anxiety) Treatments prior to arrival: none Related Data Home Medications Medication Instructions Recorded Confirmed polymyxin B sulfate 10,000 1 drp ophthalmic-Right QID 07/03/23 07/03/23 unit-trimethoprim 1 mg/mL eye drops Allergies Allergy/AdvReac Type Severity Reaction Status Date / Time sumatriptan [From IMITREX] Allergy Intermediate SWELLING Verified 07/02/23 12:16 Review of Systems Review of Systems: As per HPI. Yes all other systems are reviewed and are negative Constitutional: Constitutional: Reports as per HPI [facility] Past Medical History Medical History (Updated 07/03/23 @ 12:37 by EZIO Esteves) Arm abscess Depression Anxiety Bipolar 1 disorder Hepatitis C Cocaine abuse Social History Social History (Updated 10/12/21 @ 14:33 by Christy Kay CMA) Household Members: Family Housing: Apartment Do you presently have visiting nurse or other home services: No Alcohol intake: never Patient Tobacco Use Status: Current everyday Tobacco user Tobacco use type: Cigarette Cigarette Packs Per Day: 0.5 Cigarettes Per Day: 10 Years Smoked: 34 Smoked in Last 30 Days: Yes Use of substances other than those prescribed or required for medical reasons: Yes Substance Use Type: Crack/Cocaine and Heroin Substance Use Frequency: Daily Last Used Substance: Hours (ago) Advance Directives: No service: No Current occupational status: unemployed Physical Exam ED Vital Signs: Vital Signs - 24 hr 07/02/23 17:04 07/02/23 18:45 07/02/23 19:39 Temperature 97.8 F 97.8 F Pulse Rate 52 52 51 Respiratory Rate 18 16 16 Blood Pressure 150/94 H 153/102 H 152/98 H Pulse Oximetry 99 100 99 Oxygen Delivery Method Room Air Room Air Room Air 07/02/23 23:34 07/03/23 01:46 07/03/23 02:35 Temperature 98.2 F 97.9 F 97.4 F Pulse Rate 56 53 52 Respiratory Rate 16 16 16 Blood Pressure 150/92 H 174/93 H 165/96 H Pulse Oximetry 98 98 98 Oxygen Delivery Method Room Air Room Air Room Air 07/03/23 09:02 Temperature Pulse Rate 61 Respiratory Rate 16 Blood Pressure 144/91 H Pulse Oximetry 99 Oxygen Delivery Method Room Air BMI result Body Mass Index 21.0 Vital signs have been reviewed and appear to be correct. Blood pressure elevated. Heart rate normal. Respiratory rate normal. Temperature normal. Oxygen saturation normal. Const General: cooperative, healthy appearing and no acute distress Orientation/consciousness: oriented to person, oriented to place, oriented to time and patient oriented x3 Limitations: no limitations HENMT Head: Yes normocephalic and Yes atraumatic Ears: external ears normal General nose exam: Normal external nose present Face and sinus: Yes face symmetric Mouth: oropharynx normal and moist mucous membranes Throat: Yes uvula midline Eyes Pupils: Equal, round and reactive pupils present Neck Neck: Yes normal visual inspection and Yes supple Resp Effort & Inspection: normal respiratory effort and able to speak in complete sentences Auscultation: clear to auscultation bilaterally Cardio Rate: regular rate Rhythm: regular rhythm Heart sounds: S1 normal heart sound present and S2 normal heart sound present GI Palpation (GI): Soft to palpation and nontender Auscultation: normoactive bowel sounds General: Yes no CVA tenderness Back/Spine/Pelvis Back: no CVA tenderness Skin General skin exam: elasticity normal and turgor normal Neuro General: oriented to person, oriented to place, oriented to time, patient oriented x3, moves all extremities, no focal motor deficits and CN's II-XI intact bilaterally Cranial nerves: Yes Equal, round and reactive pupils present Cognition (Neuro): normal cognition Extrem General: Yes full ROM, Yes no pedal edema and Yes no calf tenderness Psych Appearance: grossly normal Mental Status: mental status grossly normal Affect: normal affect Attitude: cooperative Thought process: Normal thought process present Thought content: suicidality, no homicidality, no hallucinations and other (anxiety) Insight: Fair insight present (Psych) Course Course Course Narrative: 07/03/23--2221-- physician observation continued. Vital signs stable. Labs reviewed. Pending recovery evaluation for detox - detox bed search exhausted, patient sent home with Narcan Results discussed with patient including worrisome signs and symptoms and strict return precautions, and when to return to the emergency department. They verbalized understanding and feel safe for discharge at this time. Reevaluation(s) Reevaluation #1: Patient has been sleeping for the last 7 hours since sign her did her care. She is still yet to give us a urine sample for a drug screen. I went to re-evaluate the patient and she was able to the get bathroom to provide a urine sample for drug screening. She is still awaiting Care Team evaluation Time: 23:42 Medications Administered Discontinued Medications Generic Name Dose Route Start Last Admin Trade Name Freq PRN Reason Stop Dose Admin Lorazepam 1 mg 07/02/23 19:53 07/02/23 19:59 Lorazepam 1 Mg Tablet PO 07/02/23 19:54 1 mg ONCE ONE Administration Methadone HCl 20 mg 07/03/23 08:43 07/03/23 09:56 Methadone Hcl 20 Mg/2 Ml Oral.Conc PO 07/03/23 08:44 20 mg ONCE ONE Administration Methadone HCl 10 mg 07/03/23 11:45 07/03/23 12:39 Methadone Hcl 20 Mg/2 Ml Oral.Conc PO 07/03/23 11:46 10 mg ONCE ONE Administration Ondansetron HCl 4 mg 07/02/23 15:18 07/02/23 15:24 Ondansetron Odt 4 Mg Tab.Rapdis TRANSLINGU 07/02/23 15:19 4 mg ONCE ONE Administration Medical Decision Making Medical Decision Making MDM Narrative: Patient is a 48-year-old female with history of bipolar disorder, hepatitis-C, cocaine and heroin use presenting to the emergency department requesting detox from heroin. On exam patient is awake, A+Ox3, hypertensive, VS otherwise WNL, afebrile, normal neurological exam without focal deficits, physical exam as above. Given reported symptoms and physical exam findings, initial differential includes opioid use disorder, anxiety. Consult to addiction medicine placed. Differential Diagnosis Differential Diagnoses: The differential diagnosis associated with the presentation includes As per MDM. Consult Healthcare Provider Addiction medicine Lab Data 07/02/23 17:34 07/02/23 17:34 Labs: Lab Results 07/02/23 07/02/23 Range/Units 17:34 23:46 WBC 8.8 (4.8-10.8) X10*3/uL RBC 5.42 D (4.20-5.50) X10*6/uL Hgb 15.7 (12.0-16.0) g/dl Hct 48.1 H (37.0-47.0) % MCV 88.7 (80.0-98.0) fL MCH 29.0 (27.0-33.0) pg MCHC 32.6 (31.0-35.0) g/dl RDW 13.5 (11.0-16.0) % Plt Count 378 D (160-400) X10*3/uL MPV 10.3 (9.4-12.3) fL Immature Gran % (Auto) 0.2 (0.0-0.4) % Neut % (Auto) 84.9 H (45-73) % Lymph % (Auto) 11.4 L (20-40) % [place] % (Auto) 3.1 (2-11) % Eos % (Auto) 0.1 (0-4) % Baso % (Auto) 0.3 (0-2) % Lymph # (Auto) 1.0 L (1.2-4.9) X10*3/uL [place] # (Auto) 0.3 (0.1-1.2) X10*3/uL Eos # (Auto) 0.0 (0.0-0.4) X10*3/uL Baso # (Auto) 0.0 (0.0-0.2) X10*3/uL Abs Immat Gran (auto) 0.02 (0.00-0.03) X10*3/uL Absolute Neuts (auto) 7.4 (2.0-8.3) x10*3/uL Absolute Nucleated RBC 0.000 (0.0-0.012) X10*3/uL Nucleated RBC % (auto) 0.0 (0.0-0.2) /100WBC Sodium 141 (135-145) mmol/L Potassium 3.7 (3.3-5.1) mmol/L Chloride 106 (96-108) mmol/L Carbon Dioxide 22 (22-29) mmol/L Anion Gap 17 (12-20) BUN 12 (9-16) mg/dL Creatinine 0.81 (0.5-1.4) mg/dL Estim Creat Clear Calc 67.8 Estimated GFR > 60 Random Glucose 107 (60-115) mg/dL Calcium 9.9 D (8.4-10.2) mg/dL Urine Opiates Screen POSITIVE H (Not Detect) Urine Fentanyl Screen POSITIVE H (Not Detect) Ur Barbiturates Screen Not Detected (Not Detect) Ur Phencyclidine Scrn Not Detected (Not Detect) Ur Amphetamines Screen Not Detected (Not Detect) U Benzodiazepines Scrn Not Detected (Not Detect) Urine Cocaine Screen POSITIVE H (Not Detect) U Marijuana (THC) Screen POSITIVE H (Not Detect) External Record Review External record reviewed: Inpatient record, Office record and Outpatient record Discharge Plan Discharge Clinical Impression: Polysubstance abuse Patient Disposition: Home, Self-Care Instructions: Polysubstance Abuse (ED) Additional Instructions: please avoid alcohol and drug use this can kill you Follow-up with Addiction Medicine for methadone dosing If you have thoughts of hurting herself or others return to the ED Prescriptions: No Action polymyxin B sulf-trimethoprim 10,000 unit- 1 mg/mL drops 1 drp ophthalmic-Right QID Referrals: [facility] [Provider Group] [facility] [Outside] Gloria Logan, ACCOUNT DEVELOPER [Nurse Practitioner] -
[2023-07-02] MEDS: Ondansetron ODT 4 MG TAB.RAPDIS TRANSLINGU (15:24)
--- NOTE | 2023-07-02 16:30 | ECG_ITS ---
Test Reason : Requesting Detox from Heroin Blood Pressure : / mmHG Vent. Rate : 051 BPM Atrial Rate : 051 BPM P-R Int : 114 ms QRS Dur : 084 ms QT Int : 476 ms P-R-T Axes : 052 089 083 degrees QTc Int : 438 ms Sinus bradycardia Minimal voltage criteria for LVH, may be normal variant ( [place] product ) Possible Anterior infarct , age undetermined Abnormal ECG When compared with ECG of 01-APR-2019 12:46, Sinus rhythm has replaced Ectopic atrial rhythm Nonspecific T wave abnormality no longer evident in Inferior leads Referred By: Calli Hair Electronically Signed By:ALEXEY BARTHOLOMEW
[2023-07-02 17:40] LABS: MANUAL DIFF FLAG NO
[2023-07-02 17:44] LABS: Basophils Percent Auto 0.3 % (0-2); Eosinophils Percent Auto 0.1 % (0-4); Hematocrit 48.1 % (37.0-47.0); Hemoglobin 15.7 g/dl (12.0-16.0); Imm Gran Abs Auto 0.02 X10*3/uL (0.00-0.03); Imm Gran Pct Auto 0.2 % (0.0-0.4); Lymphocytes Percent Auto 11.4 % (20-40); Mean Corpuscular HGB Conc 32.6 g/dl (31.0-35.0); Mean Corpuscular Volume 88.7 fL (80.0-98.0); Mean Platelet Volume 10.3 fL (9.4-12.3); Monocytes Absolute Auto 0.3 X10*3/uL (0.1-1.2); Monocytes Percent Auto 3.1 % (2-11); Neutrophils Absolute Auto 7.4 x10*3/uL (2.0-8.3); Neutrophils Percent Auto 84.9 % (45-73); Platelet Count 378 X10*3/uL (160-400); Red Blood Count 5.42 X10*6/uL (4.20-5.50); Red Cell Distribution Width 13.5 % (11.0-16.0); White Blood Count 8.8 X10*3/uL (4.8-10.8)
[2023-07-02 17:58] LABS: Anion Gap 17 (12-20); Blood Urea Nitrogen 12 mg/dL (9-16); Calcium 9.9 mg/dL (8.4-10.2); Carbon Dioxide 22 mmol/L (22-29); Chloride 106 mmol/L (96-108); Creatinine Clr Calc Pharmacy 67.8; Estimated Glomerular Filt Rate > 60; Glucose Random 107 mg/dL (60-115); Potassium 3.7 mmol/L (3.3-5.1); Sodium 141 mmol/L (135-145)
--- NOTE | 2023-07-02 18:34 | PC.NURSE ---
Late Entry: pt comes to ED seeking detox from heroin. pt sts last use few hours prior to arrival. pt sleeping most of day on stretcher. asked for methadone, provider sts due to recent use cannot provide methadone yet. pt reporting nausea, medicated per mar. labs drawn and EKG obtained. pt currently resting quietly on stretcher in no apparent distress. rr even/unlabored. call guevara within pt reach. plan of care ongoing.
--- NOTE | 2023-07-02 19:46 | PC.NURSE ---
I assumed care of the pt at 1900. Pt is lethargic in bed, but responsive to verbal stimuli and is A&Ox4, GCS 15. Pt reports no pain, but does report anxiety and is requesting an ativan, as well as multiple blankets.
[2023-07-02] MEDS: LORazepam 1 MG TABLET PO (19:59)
--- NOTE | 2023-07-02 23:49 | MHC.EDTECH ---
THIS PC5T ASSUMED CARE OF PT AT 2300 ,VITALS SIGN TAKEN ,PT WAS ASSISTED TO WALK TO BATHROOM ,URINE SAMPLE COLLECTED AND SENT TO LAB ,PT HAD A LG BOWEL MOVEMENT ,PT IN NO APPARENT DISTRESS ,WARM BLANKET GIVEN ,WILL CONTINUE TO MONITOR .
[2023-07-03 00:02] LABS: Amphetamine Screen Urine Not Detected (Not Detect); Barbiturates, Urine Not Detected (Not Detect); Benzodiazepines Screen Urine Not Detected (Not Detect); Cannabinoid Screen Urine POSITIVE (Not Detect); Cocaine Screen Urine POSITIVE (Not Detect); Fentanyl, urine POSITIVE (Not Detect); Opiate Screen Urine POSITIVE (Not Detect); Phencyclidine Screen Urine Not Detected (Not Detect)
[2023-07-03 01:46] VITALS: BP 174/93; PULSE 53; RESP 16; TEMP 36.6; O2SAT 98
--- NOTE | 2023-07-03 01:56 | MHC.EDTECH ---
0200 ROUNDING DONE ,VITALS SIGN TAKEN ,RN HORACE IS AWARE OF PT HIGH BP ,PT SLEEPING ,WILL CONTINUE TO MONITOR .
[2023-07-03 02:35] VITALS: BP 165/96; PULSE 52; RESP 16; TEMP 36.3; O2SAT 98
--- NOTE | 2023-07-03 08:49 | MHC.RECOVRN ---
Addendum entered by Kaylen Leger RN 07/03/23 13:32: Referral packet sent to [facility]3]. Addendum entered by Kaylen Leger RN 07/03/23 13:15: Pt requesting referral to [facility]3] on [facility]. Addendum entered by Kaylen Leger RN 07/03/23 12:18: Detox bedsearch has been exhausted, there are no beds available today. Addendum entered by Kaylen Leger RN 07/03/23 10:59: No beds are available at [facility], [facility], or [facility] at this time. Awaiting response from [facility]. Original Note: T/w met with pt to discuss recovery goals. Pt appears very uncomfortable at this time, endorsing body aches, chills, goosebumps, headache, anxiety. Provider aware and ordering Methadone at this time. Pt stating that she is wanting to go to detox. Reports she uses a couple of bundles a day , last use 1 day ago. Reports she has been using for 10 years. Plan to conduct a detox bed search.
[2023-07-03 09:02] VITALS: BP 144/91; PULSE 61; RESP 16; O2SAT 99
[2023-07-03] MEDS: methADONE HCl 20 MG/2 ML ORAL.CONC PO (09:56)
--- NOTE | 2023-07-03 12:16 | PHA.MEDREC ---
Pharmacy Consult ? Medication Reconciliation Pharmacy has completed the medication reconciliation.
[2023-07-03] MEDS: methADONE HCl 20 MG/2 ML ORAL.CONC 10 MG PO (12:39)
== END 2023-07-03 14:00 | disposition home or self-care (01) ==
PROVIDERS: Registered Nurse Emergency; Emergency Provider Emergency Medicine
DX: F11.20 Opioid dependence, uncomplicated (principal); F14.20 Cocaine dependence, uncomplicated; F41.1 Generalized anxiety disorder; F43.0 Acute stress reaction; R00.1 Bradycardia, unspecified; F17.210 Nicotine dependence, cigarettes, uncomplicated; Z71.6 Tobacco abuse counseling; Z79.899 Other long term (current) drug therapy
CPT/HCPCS: 36415; 80048; 80307; 85025; 93005; 99285

== ENCOUNTER 2023-11-07 16:17 | Outpatient (REF) | payer OTHER, SELFPAY ==
[2023-11-08 06:09] LABS: HBS Num1 0.93 mIU/mL (0-7.99); HBc Num1 0.06 S/CO (0.00-0.79); Hepatitis B Core Antibody Nonreactive (Nonreactive); Hepatitis B Surface Antigen Negative (Negative); ~Hepatitis B Surface Antibody NONREACTIVE (Nonreactive)
[2023-11-09 10:58] LABS: Rubeola IgG (Measles) >300.00 AU/mL
[2023-11-09 17:38] LABS: Rubella IgG Antibody 2.24 Index
[2023-11-10 09:04] LABS: TS Negative Control Passed; TS Panel A 0; TS Panel B 0; TS Positive Control Passed; TSpotTB Negative (Negative)
== END 2023-11-07 16:18 | disposition home or self-care (01) ==
LOC: HO.LAB 16:17
PROVIDERS: PCP Internal Medicine; Visit Provider Internal Medicine
DX: Z01.84 Encounter for antibody response examination (principal); Z28.39 Other underimmunization status; Z11.59 Encounter for screening for other viral diseases; Z72.89 Other problems related to lifestyle
CPT/HCPCS: 36415; 86481; 86704; 86706; 86735; 86762; 86765; 86787; 87340

== ENCOUNTER 2023-11-14 15:49 | Outpatient (AMB) | payer OTHER, SELFPAY ==
[2023-11-14 15:51] VITALS: BP 138/84; PULSE 88; O2SAT 98; BMI 23.0
--- NOTE | 2023-11-14 15:51 | MHC.PC.OV ---
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 Accompanied by: Self / Same As Patient Allergies sumatriptan [From IMITREX] Allergy (Intermediate, Verified 11/14/23 16:36) SWELLING Medication List - Last Reconciled 11/14/23 by Jonel Burger MD bupropion HCl 150 mg PO QAM emtricitabine-tenofovir (TDF) 200-300 mg 1 tab PO DAILY methadone 120 mg PO DAILY oxcarbazepine 150 mg PO BID sertraline 50 mg PO DAILY Tobacco use date assessed: 11/14/23 Dental Screening Dental Screen Date: 11/14/23 Did you have a dental visit in the last 12 months?: Yes Did you have a dental problem in the last 6 months where you did not have access to dental care?: No Was dental information given to patient?: Patient has dentist HPI Annual PE/ Transfer Of Care HPI Details Patient comes in today for her annual physical examination - is transferring over from [facility] ([facility]) who left the practice about a year ago Patient states that he currently feels okay although she reports experiencing fatigue often She is also requesting for a referral to rheumatology for her fibromylagia States that she continues to experience diffuse myalgias and multiple joint pains and feels that her symptoms have gotten worse over the past few months She denies any headaches or dizziness Denies any shortness of breath or chest pains although she reports feeling that her heart is racing or beating more forcefully at times lately No nausea/ vomiting, no abdominal pain No change in bowel habits noted Denies any acute urinary symptoms She is currently on Descovy, likely for PrEP She also has active hepatitis C and states that she just saw Dr. Jamil yesterday and she will be starting on treatment with Epclusa She is also presently on Methadone and gets her doses [facility] at [facility] in [place] She admits to still actively using cocaine although she has cut back a lot over the past year or so She recently rescheduled her gynecology appt to sometime next month (goes to [facility]); states that she had her last pap smear done about 3 yrs ago Had her annual mammogram last done at [facility] about 2 yrs ago She has never had a screening colonoscopy done in the past [facility] Medical History (Updated 11/15/23 @ 06:35 by Jonel Burger MD) Bipolar affective disorder Arm abscess Depression Anxiety Bipolar 1 disorder Hepatitis C Cocaine abuse Surgical History (Updated 11/15/23 @ 05:53 by Jonel Burger MD) S/P excision of fibroadenoma of breast (~2002) H/O LEEP Social History Household Members: Family Housing: Apartment Do you presently have visiting nurse or other home services: No Alcohol intake: never Patient Tobacco Use Status: Current everyday Tobacco user Tobacco use type: Cigarette Cigarette Packs Per Day: 0.5 Cigarettes Per Day: 10 Years Smoked: 34 Substance Use Type: Crack/Cocaine and Heroin service: No Current occupational status: unemployed Cognitive needs: No Hearing needs: No Vision needs: No Questionnaire PHQ-9 Over the last 2 weeks, how often have you been bothered by any of the following problems? 1. Little interest or pleasure in doing things: several days 2. Feeling down, depressed, or hopeless: more than half the days 3. Trouble falling or staying asleep, or sleeping too much: more than half the days 4. Feeling tired or having little energy: not at all 5. Poor appetite or overeating: not at all 6. Feeling bad about yourself - or that you are a failure or have let yourself or your family down: not at all 7. Trouble concentrating on things, such as reading the newspaper or watching television: more than half the days 8. Moving or speaking so slowly that other people could have noticed. Or the opposite - being so fidgety or restless that you have been moving around a lot more than usual: more than half the days 9. Thoughts that you would be better off or of hurting yourself in some way: not at all Total score: 9 Depression Screening Interpretation: Positive Depression Screening Follow-up: Existing condition and In treatment Depression Screening Done: Yes [id number] - PHQ-9 Billing: Yes Source: Developed by Drs. Tesfaye Brown, Ginny Gaming, Osmar Duffy and colleagues, with an educational alma from [employer]. Thrive Questionnaire Date Thrive assessed: 11/14/23 I am a: Patient What is your living situation today?: I have a steady place to live Within the past 12 months, did the food you bought not last and you didn't have the money to get more?: Never true Within the past 12 months, did you worry whether your food would run out before you got money to buy more?: Never true Do you have trouble paying for medicines?: No Do you have trouble getting transportation to medical appointments?: No Do you have trouble paying your heating and electricity bill?: No Do you have trouble taking care of your child, family member or friend?: No Do you have trouble with day-to-day activities such as bathing, preparing meals, shopping, managing finances, etc.?: No Are you currently unemployed and looking for a job?: No Are you interested in more education?: No Please select the resources that you would like help with: None Currently or been in a relationship where the following occur: no concerns reported THRIVE Score: 0 AUDIT C Alcohol Use Questionnaire (AUDIT-C) 1. How often do you have a drink containing alcohol?: Never Total Score: 0 Score Reviewed/Action Taken: Yes GRETEL-7 AMB Questionnaire GRETEL-7 Date GRETEL - 7 assessed: 11/14/23 Feeling nervous, anxious, or on edge: 3 = Nearly every day Not being able to stop or control worryin = Nearly every day Worrying too much about different things: 1 = Several days Trouble relaxin = Several days Being so restless that it is hard to sit still: 2 = More than half the days Becoming easily annoyed or irritable: 0 = Not at all Feeling afraid as if something awful might happen: 0 = Not at all Total GRETEL-7 score (0-4 normal; 5-9 mild; 10-14 moderate; 15-21 severe): 10 Source: Developed by Drs. Tesfaye Brown, Ginny Gaming, Osmar Duffy and colleagues, with an educational alma from [employer]. Review of Systems Const Denies chills, Reports fatigue, Denies fever(s), Denies headache(s) and Denies malaise Eyes Denies blurry vision, Denies change in vision, Denies irritation and Denies itchy eyes ENT Denies dysphagia, Denies dizziness, Denies otalgia, Denies headache(s), Denies nasal congestion, Denies neck pain, Denies odynophagia, Denies sinus pain and Denies sore throat Card Denies chest pain, Reports rapid heart rate (on and off recently), Denies irregular heart rhythm, Reports palpitations (at times) and Denies dyspnea Resp Denies chest congestion, Denies cough, Denies dyspnea and Denies wheezing GI Denies abdominal pain, Denies bloating, Denies constipation, Denies dysphagia, Denies heartburn, Denies diarrhea, Denies nausea, Denies odynophagia and Denies vomiting Denies hematuria, Denies urinary frequency, Denies dysuria, Denies urinary incontinence and Denies urinary urgency Musc Reports back pain, Reports myalgias (diffuse), Reports arthralgias (of multiple joints), Denies joint swelling, Denies muscle weakness and Denies neck pain Skin/Breast Denies breast pain, Denies breast mass, Denies change in pigmentation, Denies lesions, Denies rash and Denies unusual bruising Neuro Denies dizziness, Denies headache(s) and Denies paresthesias Psych Reports anxiety and Reports depression Endo Reports fatigue and Reports palpitations (at times) Cortez/Lymph Denies easy bruising Aller/Immun Denies itchy eyes and Denies wheezing Physical exam (Primary Care) Vital Signs: Last Vital Signs Pulse 88 11/14/23 15:51 BP 138/84 11/14/23 15:51 Pulse Ox 98 11/14/23 15:51 Oxygen Delivery Method Room Air 11/14/23 15:51 BMI result Body Mass Index 23.0 Tobacco/Smoking Status: Tobacco use Status Tobacco use date assessed 11/14/23 11/14/23 15:53 Patient Tobacco Use Status Current everyday Tobacco 11/14/23 15:53 Tobacco use type Cigarette 11/14/23 15:53 PHQ-9: PHQ-9 Score PHQ-9: Total score 9 11/14/23 17:00 Depression Screening Interpretation: Positive Depression Screening Follow-up: Existing condition and In treatment Thrive Assessment: Date of Thrive Assessment Date Thrive assessed 11/14/23 11/14/23 15:53 Currently or been in a relationship where the following occur: no concerns reported Const General: no acute distress, alert and awake Orientation/consciousness: patient oriented x3 [facility]: Yes normocephalic and Yes atraumatic Ears: external ears normal, TM's normal bilaterally and EAC's normal General nose exam: No nasal discharge present Face and sinus: Yes normal facial exam and Yes sinuses nontender Teeth and gingiva: dentition normal Throat: Yes posterior oropharynx normal and Yes tonsils normal (no TP congestion) Eyes Eyelids: Yes eyelids normal Conjunctivae: conjunctivae normal Pupils: Equal, round and reactive pupils present EOM: EOMs intact bilaterally Neck Neck: Yes no lymphadenopathy and Yes supple Thyroid: Thyroid normal Resp Auscultation: clear to auscultation bilaterally, no rales and no wheezes Cardio Rate: tachycardic Rhythm: abnormal rhythm with ectopic beats Heart sounds: no murmurs GI Palpation (GI): Soft to palpation, nontender and No hepatosplenomegaly present Auscultation: normal bowel sounds General: Yes no CVA tenderness Back/Spine/Pelvis Back: no CVA tenderness Thoracic/Lumbar Spine: thoracic and lumbar spine normal to inspection and paraspinal muscle tenderness bilaterally in the upper thoracic Skin Lesions: no lesions Rashes: no rashes Neuro General: patient oriented x3, moves all extremities, no focal motor deficits and CN's II-XI intact bilaterally Cranial nerves: Yes Equal, round and reactive pupils present Cognition (Neuro): normal cognition Gait exam (Neuro): Normal gait present Extrem General: Yes no clubbing, cyanosis or edema Immunizations Boostrix Tdap 2.5 Lf unit-8 mcg-5 Lf/0.5 mL intramuscular syringe Performing Provider: Jonel Burger MD Performing Location: [facility] Administered by: Delta Danielson on 11/14/23 17:00 Dose Route Admin Location Dispensed Lot Number Expiration Date [address] [facility] Magistrate 0.5 mL IM Left Deltoid 0.5 mL [id number] 09/13/25 90851-043-97 [employer] VIS Given Date VIS Provided VIS Publication Date 11/14/23 Single Vaccine 21 Eligibility Eligibility Date Funding Source Not [facility] Eligible 11/14/23 Private Results Reviewed Results Reviewed: Laboratory Tests 07/02/23 11/07/23 17:34 16:37 WBC 8.8 Hgb 15.7 Hct 48.1 H Plt Count 378 D Sodium 141 Potassium 3.7 Creatinine 0.81 Estimated GFR > 60 Random Glucose 107 Calcium 9.9 D Hep Bs Antigen Negative Mumps Virus IgG Ab 139.00 Rubella IgG Antibody 2.24 Rubeola (Measles) IgG >300.00 TB Test (T-Spot) Com Negative VZV IgG Antibody 565.20 Assessment and Plan Assessment & Plan (1) Annual physical exam: Code(s): Z00.00 - Encounter for general adult medical examination without abnormal findings Plan: Results of her labs done a few months ago and her titers done last week reviewed and discussed with patient - results are attached to this report as well for review She is advised that she will need an updated tetanus booster as we are unable to determine when she last had her tetanus immunization - Tdap booster given today States that she is up-to-date with her annual mammogram and she scheduled for her annual gynecologic exam and pap smear with [facility] next month She will be referred to for her screening colonoscopy (2) Arrhythmia: Code(s): I49.9 - Cardiac arrhythmia, unspecified Qualifiers: Arrhythmia type: unspecified cardiac arrhythmia Qualified Code(s): I49.9 - Cardiac arrhythmia, unspecified Plan: Her exam today revealed an irregular heart rhythm although due to tachycardia, I am unable to definitively ascertain at this time whether her rhythm is atrial fibrillation or tachycardia with ectopic beats Will send her to get a 12-L EKG KATIA for further evaluation Will also have her get some additional labs as well as an echocardiogram for further evaluation, considering her history (3) Fibromyalgia: Code(s): M79.7 - Fibromyalgia Plan: Per request, will refer her to rheumatology for further management (4) Hepatitis C: Comment: Dx: 2014. Tx: 2019 X 3 months Code(s): B19.20 - Unspecified viral hepatitis C without hepatic coma Qualifiers: Viral hepatitis chronicity: chronic Hepatic coma status: without hepatic coma Qualified Code(s): B18.2 - Chronic viral hepatitis C Plan: Patient states that she was just seen by Dr. Jamil and will be starting Tx with Epclusa Follow up with Dr. Jamil as scheduled (5) Substance abuse: Code(s): F19.10 - Other psychoactive substance abuse, uncomplicated Plan: Continue Methadone 120 mg QD - goes to [facility] in [place] Patient admits to still actively using cocaine although she feels that she has cut down a lot over the past year or so Is encouraged to continue to seek counseling and work on trying to quit her drug use (6) Bipolar affective disorder: Code(s): F31.9 - Bipolar disorder, unspecified Qualifiers: Active/Remission status: currently active Current bipolar episode type: mixed Current episode severity: unspecified Qualified Code(s): F31.60 - Bipolar disorder, current episode mixed, unspecified Plan: Continue Bupropion XL 150 mg Q AM, Sertraline 50 mg QD and Oxcarbazepine 150 mg BID Follow up with psychiatry as scheduled (7) Colon cancer screening: Code(s): Z12.11 - Encounter for screening for malignant neoplasm of colon Plan: Will refer patient to GI for screening colonoscopy Plan Follow up in 2 months Orders: Orders CA echo transthoracic complete 11/14/23 I49.9 - Cardiac arrhythmia, unspecified, R06.09 - Other forms of dyspnea ECG 12 lead EKG 11/14/23 I49.9 - Cardiac arrhythmia, unspecified Comprehensive Met. Panel 11/14/23 I49.9 - Cardiac arrhythmia, unspecified TSH reflex Free T4 11/14/23 I49.9 - Cardiac arrhythmia, unspecified C Reactive Protein Today M25.50 - Pain in unspecified joint Erythrocyte Sedimentation Rate Today M25.50 - Pain in unspecified joint, M79.7 - Fibromyalgia Complete Blood Count Auto Diff 11/14/23 D64.9 - Anemia, unspecified, I49.9 - Cardiac arrhythmia, unspecified Magnesium 11/14/23 E83.42 - Hypomagnesemia, I49.9 - Cardiac arrhythmia, unspecified TDaP Immunization 11/14/23 Z23 - Encounter for immunization Rheumatoid Factor Today M25.50 - Pain in unspecified joint TAVO Reflex Titer and Pattern Today M25.50 - Pain in unspecified joint Lyme IgG/IgM w/reflex to WB Today M25.50 - Pain in unspecified joint Referrals Rheumatology Referral M79.7 - Fibromyalgia Gastroenterology Referral Z12.11 - Encounter for screening for malignant neoplasm of colon Coding Level of Care Code Est Pt Prev Care 40-64y([id number]) Diagnoses Annual physical exam Z00.00 Cardiac arrhythmia, unspecified cardiac arrhythmia type I49.9 Arrhythmia type: unspecified cardiac arrhythmia Fibromyalgia M79.7 Chronic hepatitis C without hepatic coma B18.2 Viral hepatitis chronicity: chronic Hepatic coma status: without hepatic coma Substance abuse F19.10 Bipolar affective disorder, current episode mixed, current episode severity unspecified F31.60 Active/Remission status: currently active Current bipolar episode type: mixed Current episode severity: unspecified Colon cancer screening Z12.11
== END 2023-11-14 17:08 | disposition home or self-care (01) ==
PROVIDERS: Visit Provider Internal Medicine
DX: Z23 Encounter for immunization (principal)
CPT/HCPCS: 90471; 90715; 99396

== ENCOUNTER 2023-12-04 13:58 | Outpatient (AMB) | payer OTHER, SELFPAY ==
--- NOTE | 2023-12-04 14:16 | AM.OFFVISNUR ---
Intake Intake Visit Reasons: Hep B Allergies sumatriptan [From IMITREX] Allergy (Intermediate, Verified 11/14/23 16:36) SWELLING Immunizations Engerix-B (PF) 20 mcg/mL intramuscular suspension Performing Provider: Jonel Burger MD [facility] Administered by: Kimber Diallo RN on 12/04/23 14:17 Dose Route Admin Location Dispensed Lot Number Expiration Date [facility] [employer] 1 mL IM Left Deltoid 1 mL [id number] 02/24/25 11468-061-11 [employer] VIS Given Date VIS Provided VIS Publication Date 12/04/23 Single Vaccine 23 Eligibility Eligibility Date Funding Source Not [facility] Eligible 12/04/23 Private Coding Assessment & Plan Assessment & Plan Orders: Orders Hepatitis B Adult Immunization Today Z23 - Encounter for immunization
== END 2023-12-04 14:09 | disposition home or self-care (01) ==
PROVIDERS: PCP Internal Medicine; Visit Provider Internal Medicine
DX: Z23 Encounter for immunization (principal)
CPT/HCPCS: 90471; 90746

== ENCOUNTER → 2023-12-04 14:15 | Outpatient (REF) | payer OTHER, SELFPAY ==
--- NOTE | 2023-12-04 14:21 | ECG_ITS ---
Test Reason : 149.9 Blood Pressure : / mmHG Vent. Rate : 050 BPM Atrial Rate : 050 BPM P-R Int : 136 ms QRS Dur : 080 ms QT Int : 466 ms P-R-T Axes : 054 081 061 degrees QTc Int : 424 ms Sinus bradycardia Septal infarct (cited on or before 02-JUL-2023) Abnormal ECG When compared with ECG of 02-JUL-2023 16:58, No significant change was found Referred By: Jonel Burger Electronically Signed By:JORGE FOLEY
[2023-12-04 14:39] LABS: MANUAL DIFF FLAG NO
[2023-12-04 15:03] LABS: Basophils Percent Auto 0.7 % (0-2); Eosinophils Absolute Auto 0.2 X10*3/uL (0.0-0.4); Eosinophils Percent Auto 3.6 % (0-4); Hematocrit 42.1 % (37.0-47.0); Hemoglobin 13.8 g/dl (12.0-16.0); Imm Gran Abs Auto 0.01 X10*3/uL (0.00-0.03); Imm Gran Pct Auto 0.2 % (0.0-0.4); Lymphocytes Absolute Auto 2.1 X10*3/uL (1.2-4.9); Mean Corpuscular HGB Conc 32.8 g/dl (31.0-35.0); Mean Corpuscular Hemoglobin 29.4 pg (27.0-33.0); Mean Corpuscular Volume 89.8 fL (80.0-98.0); Mean Platelet Volume 11.1 fL (9.4-12.3); Monocytes Absolute Auto 0.4 X10*3/uL (0.1-1.2); Monocytes Percent Auto 6.7 % (2-11); Neutrophils Absolute Auto 2.9 x10*3/uL (2.0-8.3); Neutrophils Percent Auto 50.8 % (45-73); Platelet Count 215 X10*3/uL (160-400); Red Blood Count 4.69 X10*6/uL (4.20-5.50); Red Cell Distribution Width 13.2 % (11.0-16.0); White Blood Count 5.6 X10*3/uL (4.8-10.8)
[2023-12-04 15:29] LABS: Rheumatoid Factor < 13.0 IU/mL (<15.0)
[2023-12-04 15:39] LABS: Erythrocyte Sedimentation Rate 10 MM/HR (0-20)
[2023-12-04 15:47] LABS: Alanine Aminotransferase 130 U/L (0-31); Albumin Level 3.9 g/dL (3.5-5.0); Alkaline Phosphatase 88 U/L (39-117); Anion Gap 12 (12-20); Aspartate Amino Transferase 96 U/L (5-31); Bilirubin Total 0.3 mg/dL (0.0-1.0); Blood Urea Nitrogen 20 mg/dL (9-16); C Reactive Protein < 0.10 mg/dL (< or = 0.50); Calcium 9.3 mg/dL (8.4-10.2); Carbon Dioxide 26 mmol/L (22-29); Chloride 105 mmol/L (96-108); Estimated Glomerular Filt Rate > 60; Glucose Random 63 mg/dL (60-115); Magnesium 2.1 mg/dL (1.6-2.6); Potassium 4.4 mmol/L (3.3-5.1); Sodium 139 mmol/L (135-145); Total Protein 7.3 g/dL (6.5-8.0)
[2023-12-04 15:49] LABS: TSH reflex Free T4 1.28 uIU/mL (0.32-4.0)
[2023-12-05 19:34] LABS: Lyme Abs Screen <0.90 index
[2023-12-12 13:09] LABS: ANA Pattern 2 Nuclear Envelope; ANA Titer 2 1:40 titer; Anti Nuclear Antibody Screen POSITIVE (NEGATIVE)
== END ==
LOC: HO.CARD 14:15
PROVIDERS: PCP Internal Medicine; Visit Provider Internal Medicine
DX: I49.9 Cardiac arrhythmia, unspecified (principal); D64.9 Anemia, unspecified; M25.50 Pain in unspecified joint; M79.7 Fibromyalgia; E83.42 Hypomagnesemia
CPT/HCPCS: 36415; 80053; 83735; 84443; 85025; 85652; 86038; 86039; 86140; 86431; 86617; 86618; 93005

== ENCOUNTER → 2023-12-04 14:21 | Outpatient (BNV) | payer OTHER, SELFPAY | PROVIDERS: PCP Internal Medicine; Visit Provider Internal Medicine | DX: R00.1 Bradycardia, unspecified (principal); R94.31 Abnormal electrocardiogram [ECG] [EKG] | CPT/HCPCS: 93010 ==

== ENCOUNTER → 2023-12-05 15:48 | Outpatient (BNV) | payer OTHER, SELFPAY | PROVIDERS: PCP Internal Medicine; Visit Provider Internal Medicine | DX: I36.1 Nonrheumatic tricuspid (valve) insufficiency (principal) | CPT/HCPCS: 93306 ==

== ENCOUNTER → 2023-12-05 15:50 | Outpatient (REF) | payer OTHER, SELFPAY ==
--- NOTE | 2023-12-05 15:48 | CA_ITS ---
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 The calculated ejection fraction is 64% by biplane method. - No obvious valvular pathology seen on this study. Findings Left Ventricle Normal left ventricular cavity size. There is normal left ventricular wall thickness. The left ventricular systolic function is normal. The calculated ejection fraction is 64% by biplane method. There is no evidence of regional wall motion abnormalities. Diastolic function is normal for age. LV peak GLS -22.9%. Right Ventricle Normal right ventricular cavity size and systolic function. Atria The left atrium is mildly dilated. The right atrium is normal in size. Aortic Valve There is a normal trileaflet aortic valve. There is no aortic valve stenosis. There is no aortic valve regurgitation. Mitral Valve The mitral valve appears normal. There is no mitral valve regurgitation. There is no mitral valve stenosis. Pulmonic Valve The pulmonic valve is likely normal. Tricuspid Valve Normal tricuspid valve structure. There is mild tricuspid valve regurgitation. There is no evidence of pulmonary hypertension. Great Vessels The asc aorta is normal in size. Venous The inferior vena cava is normal in size and collapses greater than 50% with inspiration. Pericardium/Pleural There is no evidence of pericardial effusion. Prior Study Comparison No prior study available for comparison. Recommendations, Care & Conclusions No obvious valvular pathology seen on this study. Measurements 2D Linear Measurements IVSd: 0.81 0.6-0.9/0.6-1.0 cm LVIDd: 4.26 3.9-5.3/4.2-5.9 cm LVIDd Index: 2.77 2.4-3.2/2.2-3.1 cm/m2 LVIDs: 2.61 2.0-3.6 cm LVPWd: 0.91 0.7-1.1 cm Ao Root: 2.50 2.1-3.5 cm LA Diam: 3.70 2.7-3.8/3.0-4.0 cm LAIDs Index: 2.40 1.5-2.3 cm/m2 LV Mass: 141.22 67-162/88-224 g LV Mass Index: 91.70 43-95/49-115 g/m2 LVOT Diam: 2.00 3.0+(-)1.3 cm 2D Systolic Function EF 4C: 61.00 >55% EF 2C: 66.90 >55% EF BiP: 63.50 >55% Mitral Valve MV Pk E: 1.08 MV PK A: 0.62 MV Decel Time: 184.00 E/A: 1.80 E'Lateral: 12.00 E'Medial: 11.10 E/E' Med: 9.70 E/E' Lat: 9.00 PHT: 54.00 MVA PHT: 4.07 Decel [place]: 5.87 Aortic Valve AoV Pk Yash: 1.26 AoV Mn Yash: 0.81 AoV VTI: 0.36 AoV Pk Grad: 6.00 Aov Mn Grad: 3.00 OPAL Cont.VTI: 1.78 OPAL Method: Pressure Half Time LVOT LVOT Pk Yash: 0.79 LVOT Mn Yash: 0.55 LVOT VTI: 0.20 LVOT Pk Grad: 2.00 LVOT Mn Grad: 1.00 LVOT Diam: 2.00 LVOT Area: 3.14 Diastolic Function MV Pk E: 1.08 MV Pk A: 0.62 E/A: 1.80 E'Medial: 11.10 E/E' Med: 9.70 E' Laterial: 12.00 E/E' Lat: 9.00 Right Ventricle TAPSE (mm): 23.00 TVS' Yash: 11.00 Tricuspid Valve TR Pk Yash: 2.08 TR Pk Grad: 17.00 RA Press: 3.00 RVSP: 20.00 Great Vessels Aorta Ao Root-2D: 2.50 2.0-3.7 cm Ao Asc: 2.70 2.1-3.4 cm Pulmonary Valve PV Pk Yash: 0.88 Peak PV Grad: 3.00 Updated in Other Vendor System with Status of Final Romario Sandhu MD electronically signed on 12/06/2023 7:57:01 AM with status of Final
== END ==
LOC: HO.CARD 15:50
PROVIDERS: PCP Internal Medicine; Visit Provider Internal Medicine
DX: R06.09 Other forms of dyspnea (principal); I49.9 Cardiac arrhythmia, unspecified
CPT/HCPCS: 93306; 93356

== ENCOUNTER 2024-01-03 13:41 | Outpatient (REF) | payer OTHER, SELFPAY ==
[2024-01-03 15:11] LABS: MANUAL DIFF FLAG NO
[2024-01-03 15:16] LABS: Basophils Percent Auto 0.6 % (0-2); Eosinophils Absolute Auto 0.2 X10*3/uL (0.0-0.4); Eosinophils Percent Auto 3.2 % (0-4); Hematocrit 48.7 % (37.0-47.0); Hemoglobin 15.9 g/dl (12.0-16.0); Imm Gran Abs Auto 0.02 X10*3/uL (0.00-0.03); Imm Gran Pct Auto 0.3 % (0.0-0.4); Lymphocytes Absolute Auto 2.7 X10*3/uL (1.2-4.9); Lymphocytes Percent Auto 40.9 % (20-40); Mean Corpuscular HGB Conc 32.6 g/dl (31.0-35.0); Mean Corpuscular Hemoglobin 30.5 pg (27.0-33.0); Mean Corpuscular Volume 93.5 fL (80.0-98.0); Mean Platelet Volume 10.8 fL (9.4-12.3); Monocytes Absolute Auto 0.5 X10*3/uL (0.1-1.2); Monocytes Percent Auto 7.4 % (2-11); Neutrophils Absolute Auto 3.2 x10*3/uL (2.0-8.3); Neutrophils Percent Auto 47.6 % (45-73); Platelet Count 232 X10*3/uL (160-400); Red Blood Count 5.21 X10*6/uL (4.20-5.50); Red Cell Distribution Width 13.3 % (11.0-16.0); White Blood Count 6.6 X10*3/uL (4.8-10.8)
[2024-01-03 15:32] LABS: Rheumatoid Factor < 13.0 IU/mL (<15.0)
[2024-01-03 15:38] LABS: Alanine Aminotransferase 146 U/L (0-31); Albumin Level 4.6 g/dL (3.5-5.0); Alkaline Phosphatase 118 U/L (39-117); Anion Gap 13 (12-20); Aspartate Amino Transferase 97 U/L (5-31); Bilirubin Total 0.4 mg/dL (0.0-1.0); Blood Urea Nitrogen 9 mg/dL (9-16); C Reactive Protein < 0.04 mg/dL (< or = 0.50); Calcium 9.8 mg/dL (8.4-10.2); Carbon Dioxide 30 mmol/L (22-29); Chloride 101 mmol/L (96-108); Estimated Glomerular Filt Rate 48; Glucose Random 73 mg/dL (60-115); Sodium 140 mmol/L (135-145); Total Protein 8.4 g/dL (6.5-8.0)
[2024-01-03 15:41] LABS: Appearance Urine Clear; Glucose Urine UA Negative (Negative); Leukocyte Esterase Urine Small (1+) (Negative); Nitrite Urine Negative (Negative); PH 5.5 (5.0-9.0); UMIC TRIGGER UA YES; Urine Blood Negative (Negative); Urine Ketones Negative (Negative); Urine Protein Negative (Neg-Trace)
[2024-01-03 15:44] LABS: Color Urine Yellow
[2024-01-03 16:00] LABS: Erythrocyte Sedimentation Rate 5 MM/HR (0-20)
[2024-01-03 16:11] LABS: Bacteria Urine None Seen (None Seen); Calcium Oxalate Crystals Urine Present; Hyaline Casts Urine 0-2 /LPF (0-2); RBC Urine 0-2 /HPF (0-2); Squamous Epithelial Cell Urine 0-2 /HPF (0-2); WBC Urine 0-5 /HPF (0-5)
[2024-01-03 16:45] LABS: Creatinine Urine 237.91 mg/dL; Protein/Creatinine Ratio, Ur 0.07 (<0.2); Total Protein Urine Random 17 mg/dL (<12)
[2024-01-04 14:38] LABS: Cyclic Citrullinated Peptide <16 UNITS
[2024-01-04 23:28] LABS: Anti DNA DS Antibody <1 IU/mL; Antibody to SS-A Antigen <1.0 NEG AI (<1.0 NEG); Antibody to SS-B Antigen <1.0 NEG AI (<1.0 NEG); SM/Ribonucleoprotein Ab <1.0 NEG AI (<1.0 NEG); Smith Protein <1.0 NEG AI (<1.0 NEG)
[2024-01-06 01:58] LABS: Complement C3 117 mg/dL (83-193)
[2024-01-08 12:03] LABS: DNAds, Crithidia Antibody Negative (Negative)
[2024-01-08 14:38] LABS: Cardiolipin IgG Ab 3.4 GPL-U/mL; Cardiolipin IgM Ab 17.6 MPL-U/mL
[2024-01-10 13:09] LABS: PTT (LAC) Screen 30 sec (<=40)
[2024-01-10 14:44] LABS: Beta-2 Glycoprotein IgA 2.8 U/mL (<20.0); Beta-2 Glycoprotein IgG <2.0 U/mL (<20.0)
== END 2024-01-03 13:42 | disposition home or self-care (01) ==
LOC: HO.LAB 13:41
PROVIDERS: PCP Internal Medicine; Visit Provider Student in an Organized Health Care Education/Training Program
DX: M32.9 Systemic lupus erythematosus, unspecified (principal); D68.61 Antiphospholipid syndrome; M25.50 Pain in unspecified joint; M79.7 Fibromyalgia; R76.8 Other specified abnormal immunological findings in serum; Z79.899 Other long term (current) drug therapy
CPT/HCPCS: 36415; 80053; 81001; 82570; 84156; 85025; 85597; 85598; 85613; 85652; 85730; 86140; 86146; 86147; 86160; 86200; 86225; 86235; 86255; 86431; 99202

== ENCOUNTER 2024-01-03 13:41 | Outpatient (AMB) | payer OTHER, SELFPAY ==
--- NOTE | 2024-01-03 13:54 | MHC.OFFVIS ---
Intake Vital Signs 01/03/24 13:55 Height 5 ft 2 in Weight 127 lb 3.307 oz BMI 23.3 BP 112/60 Blood Pressure Location Rt brachial Position Sitting Pulse 70 Pulse Source Pulse Oximeter Pulse Oximetry (%) 96 Oxygen Delivery Method Room Air Intake Visit Reasons: Fibromyalgia/CONFIRMED W/PAPERS Intake Note: New pt presents today for Fibromyalgia consult, internally referred by PCP Dr Burger. Has complaints of pain in shoulders, back and legs. States she saw Neuro approx 10 years ago for FM.. [facility] Cio Required: No Accompanied by: Self / Same As Patient Allergies sumatriptan [From IMITREX] Allergy (Intermediate, Verified 01/03/24 13:59) SWELLING Medication List - Last Reconciled 01/03/24 by Aye Dewitt MD bupropion HCl 150 mg PO QAM cabotegravir ER (Apretude) mg IM doxycycline monohydrate 100 mg PO BID emtricitabine-tenofovir (TDF) 200-300 mg 1 tab PO DAILY methadone 130 mg PO DAILY moxifloxacin 400 mg PO DAILY oxcarbazepine 150 mg PO BID sertraline 50 mg PO DAILY HPI HPI Comments History of Present Illness Details 48-year-old female presents for evaluation of fibromyalgia. She states that she was diagnosed with fibromyalgia more than 10 years ago. She saw a neurologist about 10 years ago and she was tried on different medicines including Neurontin, Lyrica, Flexeril and Soma. She reports mixed results. She continues to have diffuse pain, brain fog. She states that she gets intermittent swelling of her fingers in the morning, lasts about 30 minutes. Resolves spontaneously. She denies any history of DVT/PE. Patient had 9 pregnancies, 2 live births and 7 miscarriages. She believes the miscarriages were due to an incompetent cervix. She denies any fevers or weight loss. Of note patient has history of poly substance abuse. 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 She she is on medication for HIV pre exposure prophylaxis. She follows up regularly with her therapist and psychiatrist. She states that she falls asleep fairly rapidly but wakes up multiple times. [facility] Medical History Bipolar affective disorder Arm abscess Depression Anxiety Bipolar 1 disorder Hepatitis C Cocaine abuse Surgical History Hx of dilation and curettage S/P excision of fibroadenoma of breast (~2002) H/O LEEP Family History Mother Diabetes Hypertension Father No problems noted. Social History Household Members: Family Housing: Apartment Do you presently have visiting nurse or other home services: No Alcohol intake: never Patient Tobacco Use Status: Current everyday Tobacco user Tobacco use type: Cigarette Cigarette Packs Per Day: 0.5 Cigarettes Per Day: 10 Years Smoked: 34 Substance Use Type: Crack/Cocaine and Heroin service: No Current occupational status: unemployed Cognitive needs: No Hearing needs: No Vision needs: No Female Reproductive History Menstrual Total pregnancies: 9 Number of Living Children: 2 Ab spontaneous: 7 Review of Systems Const Reports fatigue Eyes Reports blurry vision and Reports diplopia ENT Reports dizziness Card Reports irregular heart rhythm Neuro Reports dizziness Psych Reports abnormal sleep pattern, Reports anxiety and Reports depression Endo Reports fatigue Physical Exam Vital Signs: Last Vital Signs Pulse 70 01/03/24 13:55 BP 112/60 01/03/24 13:55 Pulse Ox 96 01/03/24 13:55 Oxygen Delivery Method Room Air 01/03/24 13:55 BMI result Body Mass Index 23.3 Const General: cooperative, healthy appearing and comfortable Nutritional Appearance: average body habitus Orientation/consciousness: patient oriented x3 Limitations: no limitations HEENT Head: Yes atraumatic Mouth: moist mucous membranes Resp Effort & Inspection: normal respiratory effort and able to speak in complete sentences Auscultation: clear to auscultation bilaterally Cardio Rate: regular rate Rhythm: regular rhythm Skin General skin exam: no rashes or lesions noted Neuro General: patient oriented x3 Extrem Other: Osteoarthritic changes of both hands with no active synovitis Mild right wrist tenderness and pain with flexion and extension Assessment & Plan Assessment & Plan (1) TAVO positive: Code(s): R76.8 - Other specified abnormal immunological findings in serum Plan: This is a 48-year-old female with known history of fibromyalgia who presents for evaluation of fibromyalgia. Recent labs showed positive TAVO 1-80 and positive ATVO 1-40. She has history of repeated miscarriages. Complaining of morning stiffness of both hands. Will order comprehensive serology to screen for underlying autoimmune rheumatic disease. Follow-up in about 4 weeks (2) Fibromyalgia: Code(s): M79.7 - Fibromyalgia Plan: Discussed management of fibromyalgia with patient. Is a noninflammatory, non-autoimmune central afferent processing disorder leading to a diffuse pain syndrome. Patient follows up regularly with her therapist and psychiatrist.. I suggested evaluation by a therapist and/or a psychiatrist. Try to follow sleep hygiene practices. Discuss CBT for sleep with psychotherapist. Patient would benefit from increased physical activity, either through formal physical therapy or by joining a gym. Advised patient that she should start activity slowly and increase as tolerated. Consider low-impact exercises such as walking, swimming, aqua therapy stretching, yoga. Plan I spent 47 minutes reviewing patient's chart, evaluating patient, ordering diagnostic workup, counseling patient and documenting in the chart Orders: Orders Anti DNA DS Antibody Today M32.9 - Systemic lupus erythematosus, unspecified Protein Creatinine Ratio, Ur Today M32.9 - Systemic lupus erythematosus, unspecified Sjogren's Antibodies Today M32.9 - Systemic lupus erythematosus, unspecified Comprehensive Met. Panel Today M32.9 - Systemic lupus erythematosus, unspecified Cardiolipin Antibodies Today D68.61 - Antiphospholipid syndrome Rheumatoid Factor Today M25.50 - Pain in unspecified joint Cyclic Citrullinated Peptide Today M25.50 - Pain in unspecified joint Anti Extractable Nuclear Ag Today M32.9 - Systemic lupus erythematosus, unspecified Complement C3 Today M32.9 - Systemic lupus erythematosus, unspecified Complement C4 Today M32.9 - Systemic lupus erythematosus, unspecified C Reactive Protein Today M32.9 - Systemic lupus erythematosus, unspecified Erythrocyte Sedimentation Rate Today M32.9 - Systemic lupus erythematosus, unspecified DNA Double Stranded-Crithidia Today M32.9 - Systemic lupus erythematosus, unspecified UA w Microscopic Today M32.9 - Systemic lupus erythematosus, unspecified Complete Blood Count Auto Diff Today M32.9 - Systemic lupus erythematosus, unspecified Beta-2 Glycoprotein Antibody Today D68.61 - Antiphospholipid syndrome Lupus Anticoagulant Panel Today D68.61 - Antiphospholipid syndrome Coding Level of Care Code New Pt Level 4 (10955) Diagnoses TAVO positive R76.8 Fibromyalgia M79.7
[2024-01-03 13:55] VITALS: BP 112/60; PULSE 70; O2SAT 96; BMI 23.3
== END 2024-01-03 14:29 | disposition home or self-care (01) ==
PROVIDERS: PCP Internal Medicine; Visit Provider Student in an Organized Health Care Education/Training Program
DX: R76.8 Other specified abnormal immunological findings in serum (principal); M79.7 Fibromyalgia
CPT/HCPCS: 99204

== ENCOUNTER 2025-05-19 13:56 | Emergency (ER) | payer OTHER, SELFPAY ==
[2025-05-19 14:06] VITALS: BP 113/72; BP 128/74; PULSE 72; PULSE 85; RESP 16; TEMP 36.7; O2SAT 98; BMI 19.2
--- NOTE | 2025-05-19 14:30 | ED.GENADULT ---
HPI - General Adult General Chief complaint: Overdose Stated complaint: WITHDRAWALS PER EMS Time Seen by Provider: 05/19/25 14:08 Source: patient Mode of arrival: EMS Limitations: no limitations History of Present Illness HPI narrative: This is a 49 years old female with a history of substance abuse including opioids, bipolar disorder fibromyalgia presented to the emergency department with a chief complaint of withdrawal from opiates she states she was given Suboxone 16 mg by the ambulance crew. She feeling a little bit better now she is inquiring about methadone she denies SI and HI Onset (ago): day(s) (1) Radiation: non-radiation Severity: moderate Relieving factors: none Exacerbating factors: none Associated symptoms: denies other symptoms Related Data Home Medications ?Medication ?Instructions ?Recorded ?Confirmed bupropion HCl 150 mg 24 hr tablet, 150 mg PO QAM 11/14/23 11/14/23 extended release emtricitabine 200 mg-tenofovir 1 tab PO DAILY 11/14/23 11/14/23 disoproxil fumarate 300 mg tablet oxcarbazepine 150 mg tablet 150 mg PO BID 11/14/23 11/14/23 sertraline 50 mg tablet 50 mg PO DAILY 11/14/23 11/14/23 cabotegravir 600 mg/3 mL (200 mg IM 01/03/24 mg/mL) IM suspension,extended release (Apretude) doxycycline monohydrate 100 mg 100 mg PO BID 01/03/24 capsule moxifloxacin 400 mg tablet 400 mg PO DAILY 01/03/24 Previous Rx's ?Medication ?Instructions ?Recorded buprenorphine 12 mg-naloxone 3 mg 1 film buccal BID #4 ea 05/19/25 sublingual film (Suboxone) Allergies Allergy/AdvReac Type Severity Reaction Status Date / Time sumatriptan (From IMITREX) Allergy Intermediate SWELLING Verified 05/19/25 14:14 Review of Systems Constitutional: Constitutional: Reports no additional constitutional complaints Cardiovascular: Cardiovascular: Reports no additional cardiovascular complaints Neurologic: Reports system reviewed and no additional complaints, except as documented [facility] Past Medical History Attestation statement: The following information was validated with the patient. [facility] Narrative: Polysubstance abuse Medical History Bipolar affective disorder Arm abscess Depression Anxiety Bipolar 1 disorder Hepatitis C Cocaine abuse Surgical History Hx of dilation and curettage S/P excision of fibroadenoma of breast (~2002) H/O LEEP Family History Family History Mother Diabetes Hypertension Father No problems noted. Social History Social History Household Members: Family Housing: Apartment Do you presently have visiting nurse or other home services: No Alcohol intake: never Patient Tobacco Use Status: Current everyday Tobacco user Tobacco use type: Cigarette Cigarette Packs Per Day: 0.5 Cigarettes Per Day: 10 Years Smoked: 34 Substance Use Type: Crack/Cocaine and Heroin service: No Current occupational status: unemployed Cognitive needs: No Hearing needs: No Vision needs: No Physical Exam ED Exam Exam: Looks well at this time not acute distress Vital Signs: Vital Signs - 24 hr 05/19/25 14:06 05/19/25 16:27 Temperature 98.0 F 98.0 F Pulse Rate 72 72 Respiratory Rate 16 16 Blood Pressure 113/72 113/72 Pulse Oximetry 98 98 Oxygen Delivery Method Room Air Room Air BMI result Body Mass Index 19.2 Const General: cooperative Nutritional Appearance: average body habitus Orientation/consciousness: patient oriented x3 Limitations: no limitations HENMT Head: Yes normal to inspection Face and sinus: Yes normal facial exam Mouth: Normal oral and palatal mucosa present Neck Neck: Yes normal visual inspection Chest Chest palpation & inspection: normal inspection of the chest Resp Effort & Inspection: normal respiratory effort and able to speak in complete sentences Cardio Jugular venous distension: no JVD Rate: regular rate Rhythm: regular rhythm GI Inspection: Yes normal to inspection Palpation (GI): Soft to palpation Auscultation: normal bowel sounds Skin General skin exam: no rashes or lesions noted Lesions: no lesions Rashes: no rashes Neuro General: patient oriented x3 Extrem General: Yes normal to inspection Course Reevaluation(s) Reevaluation #1: On re-examination she is doing much better she is sitting and drinking, she was seen by the comprehensive service Gloria Logan NP , she will be discharged home with the appropriate follow-up. Narcan was prescribed by the comprehensive team Time: 15:46 Medications Administered Discontinued Medications Generic Name Dose Route Start Last Admin Trade Name Freq PRN Reason Stop Dose Admin Clonidine HCl 0.1 mg 05/19/25 14:12 05/19/25 14:22 Clonidine Hcl 0.1 Mg Tablet PO 05/19/25 14:13 0.1 mg ONCE ONE Administration Protocol Lorazepam 1 mg 05/19/25 14:13 05/19/25 14:22 Lorazepam 1 Mg Tablet PO 05/19/25 14:14 1 mg ONCE ONE Administration Naloxone HCl 8 mg 05/19/25 15:11 05/19/25 16:08 Naloxone Hcl Nasal Take Home 4 Mg [place] NOSTRILALT 05/19/25 15:12 8 mg ONCE ONE Administration Medical Decision Making Medical Decision Making [facility] Narrative: Patient is here inquiring about methadone, we consult comprehensive care 15:47 seen by Gloria Logan NP operative a follow-up given Narcan prescribed by her Differential Diagnosis Differential Diagnoses: The differential diagnosis associated with the presentation includes Opioid abuse/0pioid Withdrawal Admission/Observation Consideration of admission/observation: Escalation of care including admission/observation considered Consult Healthcare Provider Management of the patient was discussed with: Percussion Teacher 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 Independent Historian Clinical information obtained from an independent historian. History obtained from or confirmed by: EMS External Record Review External record reviewed: Inpatient record Prescription Management I considered prescription management with: Other (naloxone by Gloria Flores) Chronic Conditions Patient?s care impacted by: Other (Opioid abuse disorder) Discharge Plan Discharge Clinical Impression: Acute opioid withdrawal Patient Disposition: Home, Self-Care Instructions: Opioid Withdrawal (ED) Prescriptions: New buprenorphine-naloxone [Suboxone] 12-3 mg film 1 film buccal BID Qty: 4 0RF Discontinued methadone 5 mg/5 mL solution 130 mg PO DAILY Patient Comments: [facility] [place] No Action oxcarbazepine 150 mg tablet 150 mg PO BID sertraline 50 mg tablet 50 mg PO DAILY bupropion HCl 150 mg tablet extended release 24 hr 150 mg PO QAM emtricitabine-tenofovir (TDF) 200-300 mg tablet 1 tab PO DAILY Rx Instructions: Descovy cabotegravir [Apretude] 600 mg/3 mL (200 mg/mL) suspension,extended release IM doxycycline monohydrate 100 mg capsule 100 mg PO BID moxifloxacin 400 mg tablet 400 mg PO DAILY [place] [facility] [place] Referral Note: Tomorrow, 05/20 Please go to 4th floor, [address]. 9am. Today. your [place] was [place] [facility] [place] Interventions: ED Discharge Assessment Last Done: 05/19/25 16:27 Discharge Date/Time: 05/19/25 16:28 Print Language: Czech
--- NOTE | 2025-05-19 15:12 | HO.ADDICT_ITS ---
History of Present Illness Date of Service: 05/19/2025 Chief Complaint: WITHDRAWALS PER EMS Reason for Consult: continuation of MOUD Sources of Information: patient interviewed and chart reviewed HPI Narrative: Patient is a 49 year old female with history of EVI, who presented to [facility] ED via ambulance for acute opiate withdrawal. En route to the hospital, EMS administered 16mg buprenorphine to patient. Once in ED, withdrawal sx essentially resolved. Consult requested as patient stated she wanted to be referred to [facility] for methadone. Patient seen in room 26 of ED. She is awake, alert, eating ice cream and engaged in interview. She reports that she called the ambulance because her withdrawal sx were so severe she could not walk. She states she was in custodial overnight and did not use any opiates for a day and a half --she reports normally using btwn 1-5 bundles daily either via smoking or IV. Reports 4 lifetime overdoses Started using opiates at age 31 Cocaine an alcohol btwn age 14-14. She reports history of treatment, including a period of 5 years where she abstained from all substance use. Has previously been prescribed both methadone and buprenorphine. She reports withdrawal sx well managed since receiving buprenorphine. She states that while she feels buprenorphine is very helpful to her, she is fairly certain she will sell her medication and not take it--which is why she as ked for methadone referral. Discussed JOHNSON form of buprenorphine. Educated patient on how medication works and how this could address her concern related to diverting medication. Patient agreeable. Also provided education to patient that should she wish to initiate methadone in the future she can present as a walk in to [facility] at any time (while they are open) Medical Evaluation Reviewed: Yes Review of Systems Constitutional: Reports as per HPI and Reports no additional constitutional complaints Diagnostics Vital Signs (24Hr): Vital Signs - 24 hr 05/19/25 14:06 Temperature 98.0 F Pulse Rate 72 Respiratory Rate 16 Blood Pressure 113/72 Pulse Oximetry 98 Oxygen Delivery Method Room Air BMI result Body Mass Index 19.2 Mental Status Exam Mental Status Exam Patient Appearance: Appropriate Level of Consciousness: Awake, Appropriate and Alert Patient Behavior: Appropriate, Talkative and Cooperative Affect Description: Calm Speech Pattern: Clear Hallucinations: None Thought Process: Intact Thought Content: positive for Intact Judgement: Good Medications Allergies Allergies Allergy/AdvReac Type Severity Reaction Status Date / Time sumatriptan (From IMITREX) Allergy Intermediate SWELLING Verified 05/19/25 14:14 Assessment & Plan Assessment & Plan (1) Opioid use disorder, severe, dependence: Status: Acute Code(s): F11.20 - Opioid dependence, uncomplicated Assessment and Plan: * suboxone 12mg BID sent to [facility] pharmacy * take home narcan * patient to present as a walk in to [facility] tomorrow, 05/20, to initiate care with office. Total time managing care of this patient today __35__ minutes. PMFSH Past Medical History Medical History Bipolar affective disorder Arm abscess Depression Anxiety Bipolar 1 disorder Hepatitis C Cocaine abuse Family History Family History Mother Diabetes Hypertension Father No problems noted. Surgical History Surgical History Hx of dilation and curettage S/P excision of fibroadenoma of breast (~2002) H/O LEEP Social History Social History Household Members: Family Housing: Apartment Do you presently have visiting nurse or other home services: No Alcohol intake: never Patient Tobacco Use Status: Current everyday Tobacco user Tobacco use type: Cigarette Cigarette Packs Per Day: 0.5 Cigarettes Per Day: 10 Years Smoked: 34 Substance Use Type: Crack/Cocaine and Heroin Advance Directives: No Advance Directives Information Provided: No service: No Current occupational status: unemployed Cognitive needs: No Hearing needs: No Vision needs: No
--- NOTE | 2025-05-19 15:17 | PC.NURSE ---
patient stating she is interested in starting on methadone. awaiting recovery, provided with sandwich and ivan pisano. call guevara within reach
[2025-05-19] MEDS: Naloxone HCl Nasal TAKE HOME 4 MG SPRAY 8 MG NOSTRILALT (16:08)
[2025-05-19 16:27] VITALS: BP 113/72; PULSE 72; RESP 16; TEMP 36.7; O2SAT 98
== END 2025-05-19 16:28 | disposition home or self-care (01) ==
PROVIDERS: Emergency Provider Emergency Medicine; PCP Internal Medicine
DX: F11.23 Opioid dependence with withdrawal (principal); F17.210 Nicotine dependence, cigarettes, uncomplicated
CPT/HCPCS: 99284

== ENCOUNTER → 2025-05-19 14:35 | Outpatient (BNV) | payer OTHER, SELFPAY | PROVIDERS: Emergency Provider Emergency Medicine; PCP Internal Medicine; Visit Provider Nurse Practitioner Psychiatric/Mental Health | DX: F11.20 Opioid dependence, uncomplicated (principal) | CPT/HCPCS: 99282 ==